=== PATIENT | male | born 1935 | race Caucasian/White ===

== ENCOUNTER → 2017-12-03 | Outpatient (CLI) | payer MEDICARE, BC ==
[~2017-12-03] MED LIST: ALPR1; ATOR10; BUDE.5; BUPR150ER; CALCA400CH; CHOL10002 PO; CIPDEXSU; CLON.1 PO; CLON.3 TOP; FLUT1DIS5; FURO40; Hair, Skin & N1 EACH; IRON PO; LISI5 PO; POTA10T; PRED20 PO; Percocet 5-3251 EACH PO; Prednisone20 MG PO; TIOT18; XARELTO20 MG
[2017-12-03 10:49] LABS: BASOPHILS ABSOLUTE AUTO 0.02 K/mm3 (0.00-0.23); BASOPHILS PERCENT AUTO 0 % (0-2); EOSINOPHILS ABSOLUTE AUTO 0.03 K/mm3 (0.00-0.68); EOSINOPHILS PERCENT AUTO 0 % (0-6); Hematocrit 38.1 % (37.0-53.0); Hemoglobin 11.9 g/dL (13.5-17.5); IMMATURE GRAN ABSOLUTE AUTO 0.07 K/mm3 (0.00-0.10); IMMATURE GRAN PERCENT AUTO 1 % (0-1); LYMPHOCYTES ABSOLUTE AUTO 1.35 K/mm3 (0.84-5.20); LYMPHOCYTES PERCENT AUTO 13 % (21-46); MONOCYTES ABSOLUTE AUTO 0.86 K/mm3 (0.16-1.47); MONOCYTES PERCENT AUTO 8 % (4-13); Mean Corpuscular HGB 32.2 pg (26.0-34.0); Mean Corpuscular HGB Conc 31.2 g/dL (31.5-36.5); Mean Corpuscular Volume 103 fL (80-100); Mean Platelet Volume 10.9 fL (9.1-12.4); NEUTROPHILS ABSOLUTE AUTO 8.29 K/mm3 (1.96-9.15); NEUTROPHILS PERCENT AUTO 78 % (41-73); Platelet Count 59 K/mm3 (150-400); RDW Coefficient Variation 17.1 % (11.7-14.2); RDW Standard Deviation 64.3 fL (35.1-46.3); White Blood Cell Count 10.62 K/mm3 (4.00-11.30)
== END | disposition home or self-care (01) ==
LOC: LAB 09:56
PROVIDERS: Internal Medicine Hematology & Oncology
DX: C83.58 Lymphoblastic (diffuse) lymphoma, lymph nodes of multiple sites (principal); D64.9 Anemia, unspecified
CPT/HCPCS: 85025

== ENCOUNTER 2017-12-25 15:42 | Emergency (ER) | payer MEDICARE, BC ==
[~2017-12-25] VITALS: Ht 175.3 cm; Wt 86.2 kg
[~2017-12-25 15:42] MED LIST changes: -CHOL10002 PO; -CLON.1 PO; -IRON PO; -LISI5 PO; -PRED20 PO; -Percocet 5-3251 EACH PO; -Prednisone20 MG PO
[2017-12-25] MEDS ORDERED: PRED20 PO (16:23)
[2018-06-29] MEDS ORDERED: CLON.1 PO (00:04)
[2018-06-29] MEDS ORDERED: LISI5 PO (00:05)
[2018-06-29] MEDS ORDERED: IRON PO (00:07)
[2018-06-29] MEDS ORDERED: CHOL10002 PO (00:08)
[2018-06-29] MEDS ORDERED: Percocet 5-3251 EACH PO (06:40)
[2018-06-29] MEDS ORDERED: Prednisone20 MG PO (06:40)
== END 2017-12-25 18:11 | disposition home or self-care (01) ==
LOC: ER 15:42
DX: S81.811A Laceration without foreign body, right lower leg, initial encounter (principal); S61.512A Laceration without foreign body of left wrist, initial encounter; I10 Essential (primary) hypertension; F41.9 Anxiety disorder, unspecified; J44.9 Chronic obstructive pulmonary disease, unspecified; Z79.899 Other long term (current) drug therapy; Z87.891 Personal history of nicotine dependence; Z96.641 Presence of right artificial hip joint; W18.30XA Fall on same level, unspecified, initial encounter
CPT/HCPCS: 99283

== ENCOUNTER 2018-01-18 08:34 | Day surgery (SDC) | payer MEDICARE, BC ==
[~2018-01-18 08:34] MED LIST changes: +PRED20 PO
[2018-06-29] MEDS ORDERED: CLON.1 PO (00:04)
[2018-06-29] MEDS ORDERED: LISI5 PO (00:05)
[2018-06-29] MEDS ORDERED: IRON PO (00:07)
[2018-06-29] MEDS ORDERED: CHOL10002 PO (00:08)
[2018-06-29] MEDS ORDERED: Percocet 5-3251 EACH PO (06:40)
[2018-06-29] MEDS ORDERED: Prednisone20 MG PO (06:40)
== END 2018-01-18 23:19 | disposition home or self-care (01) ==
LOC: WOUND 08:34
PROC: 0HBKXZZ Excision of Right Lower Leg Skin, External Approach (ICD-10-PCS; principal; 2018-01-18)
DX: Z48.00 Encounter for change or removal of nonsurgical wound dressing (principal); S81.821S Laceration with foreign body, right lower leg, sequela; J44.9 Chronic obstructive pulmonary disease, unspecified; I10 Essential (primary) hypertension; J45.20 Mild intermittent asthma, uncomplicated
CPT/HCPCS: 93922; G0463

== ENCOUNTER 2018-01-25 00:08 | Day surgery (SDC) | payer MEDICARE, BC ==
[2018-06-29] MEDS ORDERED: CLON.1 PO (00:04)
[2018-06-29] MEDS ORDERED: LISI5 PO (00:05)
[2018-06-29] MEDS ORDERED: IRON PO (00:07)
[2018-06-29] MEDS ORDERED: CHOL10002 PO (00:08)
[2018-06-29] MEDS ORDERED: Prednisone20 MG PO (06:40)
[2018-06-29] MEDS ORDERED: Percocet 5-3251 EACH PO (06:40)
== END 2018-01-25 22:51 | disposition home or self-care (01) ==
LOC: WOUND 00:08
PROC: 0HBKXZZ Excision of Right Lower Leg Skin, External Approach (ICD-10-PCS; principal; 2018-01-25)
PROC: 2W1LX6Z Compression of Right Lower Extremity using Pressure Dressing (ICD-10-PCS; principal; 2018-01-25)
DX: S81.821A Laceration with foreign body, right lower leg, initial encounter (principal); J44.9 Chronic obstructive pulmonary disease, unspecified; I12.9 Hypertensive chronic kidney disease with stage 1 through stage 4 chronic kidney disease, or unspecified chronic kidney disease; I48.91 Unspecified atrial fibrillation; C83.58 Lymphoblastic (diffuse) lymphoma, lymph nodes of multiple sites; J45.20 Mild intermittent asthma, uncomplicated; D64.9 Anemia, unspecified

== ENCOUNTER 2018-01-28 11:25 | Day surgery (SDC) | payer MEDICARE, BC ==
[2018-06-29] MEDS ORDERED: CLON.1 PO (00:04)
[2018-06-29] MEDS ORDERED: LISI5 PO (00:05)
[2018-06-29] MEDS ORDERED: IRON PO (00:07)
[2018-06-29] MEDS ORDERED: CHOL10002 PO (00:08)
[2018-06-29] MEDS ORDERED: Prednisone20 MG PO (06:40)
[2018-06-29] MEDS ORDERED: Percocet 5-3251 EACH PO (06:40)
== END 2018-01-28 22:51 | disposition home or self-care (01) ==
LOC: WOUND 11:25
PROC: 2W1RX6Z Compression of Left Lower Leg using Pressure Dressing (ICD-10-PCS; principal; 2018-01-28)
DX: S81.821A Laceration with foreign body, right lower leg, initial encounter (principal); J44.9 Chronic obstructive pulmonary disease, unspecified; J45.20 Mild intermittent asthma, uncomplicated; I48.91 Unspecified atrial fibrillation; C83.58 Lymphoblastic (diffuse) lymphoma, lymph nodes of multiple sites; I12.9 Hypertensive chronic kidney disease with stage 1 through stage 4 chronic kidney disease, or unspecified chronic kidney disease; N18.9 Chronic kidney disease, unspecified; D64.9 Anemia, unspecified

== ENCOUNTER 2018-02-01 10:57 | Day surgery (SDC) | payer MEDICARE, BC ==
[2018-06-29] MEDS ORDERED: CLON.1 PO (00:04)
[2018-06-29] MEDS ORDERED: LISI5 PO (00:05)
[2018-06-29] MEDS ORDERED: IRON PO (00:07)
[2018-06-29] MEDS ORDERED: CHOL10002 PO (00:08)
[2018-06-29] MEDS ORDERED: Prednisone20 MG PO (06:40)
[2018-06-29] MEDS ORDERED: Percocet 5-3251 EACH PO (06:40)
== END 2018-02-01 22:58 | disposition home or self-care (01) ==
LOC: WOUND 10:57
PROC: 0HBKXZZ Excision of Right Lower Leg Skin, External Approach (ICD-10-PCS; principal; 2018-02-01)
PROC: 2W1LX6Z Compression of Right Lower Extremity using Pressure Dressing (ICD-10-PCS; principal; 2018-02-01)
DX: S81.821A Laceration with foreign body, right lower leg, initial encounter (principal); J44.9 Chronic obstructive pulmonary disease, unspecified; J45.20 Mild intermittent asthma, uncomplicated; I48.91 Unspecified atrial fibrillation; C83.58 Lymphoblastic (diffuse) lymphoma, lymph nodes of multiple sites; I12.9 Hypertensive chronic kidney disease with stage 1 through stage 4 chronic kidney disease, or unspecified chronic kidney disease; N18.9 Chronic kidney disease, unspecified; D64.9 Anemia, unspecified
CPT/HCPCS: G0463

== ENCOUNTER → 2018-02-11 | Outpatient (CLI) | payer MEDICARE, BC ==
[~2018-02-11] MED LIST changes: +CHOL10002 PO; +CLON.1 PO; +IRON PO; +LISI5 PO; +Percocet 5-3251 EACH PO; +Prednisone20 MG PO
== END ==
LOC: LAB 16:47
DX: L08.0 Pyoderma (principal)
CPT/HCPCS: 87070; 87077; 87147; 87186; 87205

== ENCOUNTER 2018-02-15 10:49 | Day surgery (SDC) | payer MEDICARE, BC ==
[~2018-02-15 10:49] MED LIST changes: -CHOL10002 PO; -CLON.1 PO; -IRON PO; -LISI5 PO; -Percocet 5-3251 EACH PO; -Prednisone20 MG PO
[2018-06-29] MEDS ORDERED: CLON.1 PO (00:04)
[2018-06-29] MEDS ORDERED: LISI5 PO (00:05)
[2018-06-29] MEDS ORDERED: IRON PO (00:07)
[2018-06-29] MEDS ORDERED: CHOL10002 PO (00:08)
[2018-06-29] MEDS ORDERED: Percocet 5-3251 EACH PO (06:40)
[2018-06-29] MEDS ORDERED: Prednisone20 MG PO (06:40)
== END 2018-02-15 15:56 | disposition home or self-care (01) ==
LOC: WOUND 10:49
PROC: 0HBKXZZ Excision of Right Lower Leg Skin, External Approach (ICD-10-PCS; principal; 2018-02-15)
DX: Z48.00 Encounter for change or removal of nonsurgical wound dressing (principal); S81.811D Laceration without foreign body, right lower leg, subsequent encounter; L97.811 Non-pressure chronic ulcer of other part of right lower leg limited to breakdown of skin; J44.9 Chronic obstructive pulmonary disease, unspecified; J45.20 Mild intermittent asthma, uncomplicated; C83.58 Lymphoblastic (diffuse) lymphoma, lymph nodes of multiple sites; D64.9 Anemia, unspecified; I12.9 Hypertensive chronic kidney disease with stage 1 through stage 4 chronic kidney disease, or unspecified chronic kidney disease; N18.9 Chronic kidney disease, unspecified; D63.1 Anemia in chronic kidney disease; I48.91 Unspecified atrial fibrillation; Z79.01 Long term (current) use of anticoagulants

== ENCOUNTER 2018-02-18 13:56 | Day surgery (SDC) | payer MEDICARE, BC ==
[2018-06-29] MEDS ORDERED: CLON.1 PO (00:04)
[2018-06-29] MEDS ORDERED: LISI5 PO (00:05)
[2018-06-29] MEDS ORDERED: IRON PO (00:07)
[2018-06-29] MEDS ORDERED: CHOL10002 PO (00:08)
[2018-06-29] MEDS ORDERED: Percocet 5-3251 EACH PO (06:40)
[2018-06-29] MEDS ORDERED: Prednisone20 MG PO (06:40)
== END 2018-02-18 15:00 | disposition home or self-care (01) ==
LOC: WOUND 13:56
PROC: 2W1QX6Z Compression of Right Lower Leg using Pressure Dressing (ICD-10-PCS; principal; 2018-02-18)
DX: Z48.00 Encounter for change or removal of nonsurgical wound dressing (principal); S81.821S Laceration with foreign body, right lower leg, sequela; J44.9 Chronic obstructive pulmonary disease, unspecified; J45.20 Mild intermittent asthma, uncomplicated; C83.58 Lymphoblastic (diffuse) lymphoma, lymph nodes of multiple sites; N18.9 Chronic kidney disease, unspecified; I12.9 Hypertensive chronic kidney disease with stage 1 through stage 4 chronic kidney disease, or unspecified chronic kidney disease; D63.1 Anemia in chronic kidney disease; I48.91 Unspecified atrial fibrillation; D64.9 Anemia, unspecified; Z79.01 Long term (current) use of anticoagulants

== ENCOUNTER 2018-02-21 00:50 | Day surgery (SDC) | payer MEDICARE, BC ==
[~2018-02-21 00:50] MED LIST changes: +CLON.3; -CLON.3 TOP
== END 2018-02-21 22:53 | disposition home or self-care (01) ==
LOC: WOUND 00:50
PROC: 0HBKXZZ Excision of Right Lower Leg Skin, External Approach (ICD-10-PCS; principal; 2018-02-21)
DX: S81.821A Laceration with foreign body, right lower leg, initial encounter (principal); J44.9 Chronic obstructive pulmonary disease, unspecified; J45.20 Mild intermittent asthma, uncomplicated; I12.9 Hypertensive chronic kidney disease with stage 1 through stage 4 chronic kidney disease, or unspecified chronic kidney disease; I48.91 Unspecified atrial fibrillation; C83.58 Lymphoblastic (diffuse) lymphoma, lymph nodes of multiple sites; N18.9 Chronic kidney disease, unspecified; D64.9 Anemia, unspecified
CPT/HCPCS: G0463

== ENCOUNTER 2018-03-01 10:49 | Day surgery (SDC) | payer MEDICARE, BC | END 2018-03-01 12:29 | disposition home or self-care (01) | LOC: WOUND 10:49 | PROC: 2W1QX6Z Compression of Right Lower Leg using Pressure Dressing (ICD-10-PCS; principal; 2018-03-01) | DX: S81.801A Unspecified open wound, right lower leg, initial encounter (principal); J44.9 Chronic obstructive pulmonary disease, unspecified; J45.20 Mild intermittent asthma, uncomplicated; I48.91 Unspecified atrial fibrillation; C83.58 Lymphoblastic (diffuse) lymphoma, lymph nodes of multiple sites; I12.9 Hypertensive chronic kidney disease with stage 1 through stage 4 chronic kidney disease, or unspecified chronic kidney disease; N18.9 Chronic kidney disease, unspecified; D64.9 Anemia, unspecified ==

== ENCOUNTER 2018-03-05 10:40 | Day surgery (SDC) | payer MEDICARE, BC | END 2018-03-05 12:22 | disposition home or self-care (01) | LOC: WOUND 10:40 | PROC: 0HBKXZZ Excision of Right Lower Leg Skin, External Approach (ICD-10-PCS; principal; 2018-03-05) | PROC: 0HBLXZZ Excision of Left Lower Leg Skin, External Approach (ICD-10-PCS; 2018-03-05) | DX: S81.821A Laceration with foreign body, right lower leg, initial encounter (principal); I10 Essential (primary) hypertension; J45.20 Mild intermittent asthma, uncomplicated; I48.91 Unspecified atrial fibrillation; C83.58 Lymphoblastic (diffuse) lymphoma, lymph nodes of multiple sites; D64.9 Anemia, unspecified | CPT/HCPCS: G0463 ==

== ENCOUNTER 2018-03-07 09:15 | Day surgery (SDC) | payer MEDICARE, BC | END 2018-03-07 22:42 | disposition home or self-care (01) | LOC: WOUND 09:15 | PROC: 2W1RX6Z Compression of Left Lower Leg using Pressure Dressing (ICD-10-PCS; principal; 2018-03-07) | DX: S90.512A Abrasion, left ankle, initial encounter (principal); S81.821A Laceration with foreign body, right lower leg, initial encounter; J44.9 Chronic obstructive pulmonary disease, unspecified; I10 Essential (primary) hypertension; J45.20 Mild intermittent asthma, uncomplicated; I48.91 Unspecified atrial fibrillation; C83.58 Lymphoblastic (diffuse) lymphoma, lymph nodes of multiple sites; N18.9 Chronic kidney disease, unspecified; D64.9 Anemia, unspecified ==

== ENCOUNTER 2018-03-14 00:14 | Day surgery (SDC) | payer MEDICARE, BC | END 2018-03-14 22:38 | disposition home or self-care (01) | LOC: WOUND 00:14 | PROC: 0HBKXZZ Excision of Right Lower Leg Skin, External Approach (ICD-10-PCS; principal; 2018-03-14) | DX: S81.821A Laceration with foreign body, right lower leg, initial encounter (principal); J44.9 Chronic obstructive pulmonary disease, unspecified; J45.20 Mild intermittent asthma, uncomplicated; I48.91 Unspecified atrial fibrillation; C83.58 Lymphoblastic (diffuse) lymphoma, lymph nodes of multiple sites; I12.9 Hypertensive chronic kidney disease with stage 1 through stage 4 chronic kidney disease, or unspecified chronic kidney disease; N18.9 Chronic kidney disease, unspecified; D64.9 Anemia, unspecified | CPT/HCPCS: G0463 ==

== ENCOUNTER 2018-03-21 13:27 | Day surgery (SDC) | payer MEDICARE, BC | END 2018-03-21 15:48 | disposition home or self-care (01) | LOC: WOUND 13:27 | PROC: 2W1QX6Z Compression of Right Lower Leg using Pressure Dressing (ICD-10-PCS; principal; 2018-03-21) | DX: S81.821A Laceration with foreign body, right lower leg, initial encounter (principal); J44.9 Chronic obstructive pulmonary disease, unspecified; I11.0 Hypertensive heart disease with heart failure; J45.20 Mild intermittent asthma, uncomplicated; I48.91 Unspecified atrial fibrillation; C83.58 Lymphoblastic (diffuse) lymphoma, lymph nodes of multiple sites; N18.9 Chronic kidney disease, unspecified; D64.9 Anemia, unspecified | CPT/HCPCS: G0463 ==

== ENCOUNTER 2018-03-28 00:08 | Day surgery (SDC) | payer MEDICARE, BC | END 2018-03-28 23:15 | disposition home or self-care (01) | LOC: WOUND 00:08 | PROC: 2W1LX6Z Compression of Right Lower Extremity using Pressure Dressing (ICD-10-PCS; principal; 2018-03-28) | PROC: 0HBKXZZ Excision of Right Lower Leg Skin, External Approach (ICD-10-PCS; principal; 2018-03-28) | PROC: 0HBLXZZ Excision of Left Lower Leg Skin, External Approach (ICD-10-PCS; principal; 2018-03-28) | PROC: 2W1RX6Z Compression of Left Lower Leg using Pressure Dressing (ICD-10-PCS; principal; 2018-03-28) | DX: S81.821A Laceration with foreign body, right lower leg, initial encounter (principal); J44.9 Chronic obstructive pulmonary disease, unspecified; J45.20 Mild intermittent asthma, uncomplicated; I48.91 Unspecified atrial fibrillation; C83.58 Lymphoblastic (diffuse) lymphoma, lymph nodes of multiple sites; I12.9 Hypertensive chronic kidney disease with stage 1 through stage 4 chronic kidney disease, or unspecified chronic kidney disease; N18.9 Chronic kidney disease, unspecified; D64.9 Anemia, unspecified | CPT/HCPCS: G0463 ==

== ENCOUNTER 2018-04-04 00:13 | Day surgery (SDC) | payer MEDICARE, BC | END 2018-04-04 23:00 | disposition home or self-care (01) | LOC: WOUND 00:13 | PROC: 2W1RX6Z Compression of Left Lower Leg using Pressure Dressing (ICD-10-PCS; principal; 2018-04-04) | PROC: 0HBKXZZ Excision of Right Lower Leg Skin, External Approach (ICD-10-PCS; principal; 2018-04-04) | PROC: 2W1QX6Z Compression of Right Lower Leg using Pressure Dressing (ICD-10-PCS; principal; 2018-04-04) | PROC: 0HBLXZZ Excision of Left Lower Leg Skin, External Approach (ICD-10-PCS; principal; 2018-04-04) | DX: S81.821A Laceration with foreign body, right lower leg, initial encounter (principal); S91.002A Unspecified open wound, left ankle, initial encounter; S81.812A Laceration without foreign body, left lower leg, initial encounter; L97.829 Non-pressure chronic ulcer of other part of left lower leg with unspecified severity; J44.9 Chronic obstructive pulmonary disease, unspecified; I10 Essential (primary) hypertension; J45.20 Mild intermittent asthma, uncomplicated; I48.91 Unspecified atrial fibrillation; C83.58 Lymphoblastic (diffuse) lymphoma, lymph nodes of multiple sites; N18.9 Chronic kidney disease, unspecified; D64.9 Anemia, unspecified | CPT/HCPCS: G0463 ==

== ENCOUNTER 2018-04-11 11:00 | Day surgery (SDC) | payer MEDICARE, BC | END 2018-04-11 14:06 | disposition home or self-care (01) | LOC: WOUND 11:00 | PROC: 2W1LX6Z Compression of Right Lower Extremity using Pressure Dressing (ICD-10-PCS; principal; 2018-04-11) | DX: S81.821A Laceration with foreign body, right lower leg, initial encounter (principal); S91.002A Unspecified open wound, left ankle, initial encounter; J44.9 Chronic obstructive pulmonary disease, unspecified; I12.9 Hypertensive chronic kidney disease with stage 1 through stage 4 chronic kidney disease, or unspecified chronic kidney disease; J45.20 Mild intermittent asthma, uncomplicated; I48.91 Unspecified atrial fibrillation; C83.58 Lymphoblastic (diffuse) lymphoma, lymph nodes of multiple sites; N18.9 Chronic kidney disease, unspecified; D64.9 Anemia, unspecified | CPT/HCPCS: G0463 ==

== ENCOUNTER 2018-04-18 13:15 | Day surgery (SDC) | payer MEDICARE, BC | END 2018-04-18 14:31 | disposition home or self-care (01) | LOC: WOUND 13:15 | PROC: 2W1RX6Z Compression of Left Lower Leg using Pressure Dressing (ICD-10-PCS; principal; 2018-04-18) | PROC: 2W1QX6Z Compression of Right Lower Leg using Pressure Dressing (ICD-10-PCS; principal; 2018-04-18) | DX: S91.002A Unspecified open wound, left ankle, initial encounter (principal); S81.821A Laceration with foreign body, right lower leg, initial encounter; J44.9 Chronic obstructive pulmonary disease, unspecified; I12.9 Hypertensive chronic kidney disease with stage 1 through stage 4 chronic kidney disease, or unspecified chronic kidney disease; J45.20 Mild intermittent asthma, uncomplicated; D64.9 Anemia, unspecified ==

== ENCOUNTER 2018-04-25 13:10 | Day surgery (SDC) | payer MEDICARE, BC | END 2018-04-25 14:28 | disposition home or self-care (01) | LOC: WOUND 13:10 | PROC: 2W1RX6Z Compression of Left Lower Leg using Pressure Dressing (ICD-10-PCS; principal; 2018-04-25) | DX: S81.812A Laceration without foreign body, left lower leg, initial encounter (principal); L97.829 Non-pressure chronic ulcer of other part of left lower leg with unspecified severity; S81.811A Laceration without foreign body, right lower leg, initial encounter; I10 Essential (primary) hypertension | CPT/HCPCS: G0463 ==

== ENCOUNTER 2018-05-01 15:00 | Day surgery (SDC) | payer MEDICARE, BC | END 2018-05-01 22:40 | disposition home or self-care (01) | LOC: WOUND 15:00 | DX: Z48.00 Encounter for change or removal of nonsurgical wound dressing (principal); S81.821A Laceration with foreign body, right lower leg, initial encounter; S91.002A Unspecified open wound, left ankle, initial encounter; J44.9 Chronic obstructive pulmonary disease, unspecified; J45.20 Mild intermittent asthma, uncomplicated; I48.91 Unspecified atrial fibrillation; C83.58 Lymphoblastic (diffuse) lymphoma, lymph nodes of multiple sites; I12.9 Hypertensive chronic kidney disease with stage 1 through stage 4 chronic kidney disease, or unspecified chronic kidney disease; N18.9 Chronic kidney disease, unspecified | CPT/HCPCS: G0463 ==

== ENCOUNTER → 2018-07-30 | Outpatient (CLI) | payer MEDICARE, BC ==
[~2018-07-30] MED LIST changes: +CHOL10002 PO; +CLON.1 PO; -CLON.3; +CLON.3 TOP; +IRON PO; +LISI5 PO; +Percocet 5-3251 EACH PO; +Prednisone20 MG PO
== END | disposition home or self-care (01) ==
LOC: LAB SHORT 07:32 → PLD 07:32
DX: D48.5 Neoplasm of uncertain behavior of skin (principal)
CPT/HCPCS: 88305

== ENCOUNTER → 2018-08-14 | Outpatient (CLI) | payer MEDICARE, BC | END | disposition home or self-care (01) | LOC: PLD 08:15 → LAB SHORT 08:15 | DX: C44.42 Squamous cell carcinoma of skin of scalp and neck (principal) | CPT/HCPCS: 88305 ==

== ENCOUNTER → 2018-11-14 | Outpatient (CLI) | payer MEDICARE, BC | END | disposition home or self-care (01) | LOC: LAB 11:20 → LAB SHORT 11:20 | DX: L08.0 Pyoderma (principal) | CPT/HCPCS: 87070; 87077; 87147; 87186; 87205 ==

== ENCOUNTER → 2018-11-27 | Outpatient (CLI) | payer MEDICARE, BC | END | disposition home or self-care (01) | LOC: LAB 10:11 → LAB SHORT 10:11 | DX: L08.0 Pyoderma (principal) | CPT/HCPCS: 87070; 87077; 87147; 87186; 87205 ==

== ENCOUNTER → 2018-12-11 | Outpatient (CLI) | payer MEDICARE, BC | END | disposition home or self-care (01) | LOC: LAB 12:10 → LAB SHORT 12:10 | DX: L08.0 Pyoderma (principal) | CPT/HCPCS: 87070; 87077; 87147; 87186; 87205 ==

== ENCOUNTER → 2019-01-01 | Outpatient (CLI) | payer MEDICARE, BC | END | disposition home or self-care (01) | LOC: LAB 11:19 → LAB SHORT 11:19 | DX: L08.0 Pyoderma (principal) | CPT/HCPCS: 87070; 87077; 87147; 87186; 87205 ==

== ENCOUNTER → 2019-01-29 | Outpatient (CLI) | payer MEDICARE, BC | END | disposition home or self-care (01) | LOC: LAB 11:42 → LAB SHORT 11:42 | DX: L08.0 Pyoderma (principal) | CPT/HCPCS: 87070; 87205 ==

== ENCOUNTER → 2019-03-18 | Outpatient (CLI) | payer MEDICARE, BC | END | disposition home or self-care (01) | LOC: LAB SHORT 15:22 → PLD 15:22 | DX: C44.42 Squamous cell carcinoma of skin of scalp and neck (principal) | CPT/HCPCS: 88305 ==

== ENCOUNTER → 2019-06-17 | Outpatient (CLI) | payer MEDICARE, BC ==
[~2019-06-17] MED LIST changes: +ACET325 PO; -ALPR1; +ALPR1 PO; +AMOCLA875 PO; -ATOR10; +ATOR10 PO; +Augmentin 875-1 EACH PO; -BUPR150ER; +BUPR150ER PO; +Budesonide0.5 MG/2 M INH; +CALCIUM 600 +1 EA11 PO; +CIPDEXSU BOTHEARS; +CYAN500 PO; +DILT60ER PO; +FLUT1DIS5 INH; -FURO40; +FURO40 PO; +Ferrous Sulfat325 M2 PO; +Florastor250 MG PO; -Hair, Skin & N1 EACH; -IRON PO; +OMEP20ER PO; +ONDA4ODT; -POTA10T; +POTA10T PO; +Prednisone5 MG PO; +THERA1 EACH PO; +TIMO.5OPSO RIGHTEYE; -TIOT18; +TIOT18 INH; -XARELTO20 MG; +XARELTO20 MG PO
== END | disposition home or self-care (01) ==
LOC: PLD 11:36 → LAB SHORT 11:36
DX: D48.5 Neoplasm of uncertain behavior of skin (principal)
CPT/HCPCS: 88305

== ENCOUNTER 2019-07-11 11:00 | Inpatient (IN) | payer MEDICARE, BC ==
[~2019-07-11] VITALS: Ht 177.8 cm; Wt 89.2 kg
[~2019-07-11 11:00] MED LIST changes: -ACET325 PO; -AMOCLA875 PO; -Augmentin 875-1 EACH PO; -Budesonide0.5 MG/2 M INH; -CALCIUM 600 +1 EA11 PO; -CIPDEXSU BOTHEARS; -CYAN500 PO; -DILT60ER PO; -FLUT1DIS5 INH; -Florastor250 MG PO; -OMEP20ER PO; -ONDA4ODT; -Prednisone5 MG PO; -TIMO.5OPSO RIGHTEYE
[2019-07-11 11:40] LABS: Chloride (POC) 104 mmol/L (98-108); Creatinine (POC) 1.8 mg/dL (0.8-1.3); Glucose (ISTAT POC) 76 mg/dL (70-99); Hemoglobin (POC) 15.3 g/dL (13.5-17.5); Potassium (POC) 3.5 mmol/L (3.5-5.5); Sodium (POC) 143 mmol/L (135-148); Total CO2 (POC) 28 mmol/L (21-32)
[2019-07-11 11:48] LABS: Source, Urine Clean Catch
[2019-07-11 11:50] LABS: Appearance, Urine Clear (Clear); Bilirubin, Urine Neg (Neg); Blood, Urine 2+ (Neg); Color, Urine Yellow (P-Yellow); Glucose Qualitative, Urine Neg (Neg); Ketones, Urine 1+ (Neg); Leukocyte Esterase, Urine Neg (Neg); Nitrite, Urine Neg (Neg); Protein, Urine 2+ (Neg); Urobilinogen, Urine NORM (Normal)
[2019-07-11 11:51] LABS: Hematocrit 48.3 % (37.0-53.0); Hemoglobin 15.2 g/dL (13.5-17.5); Mean Corpuscular HGB 31.5 pg (26.0-34.0); Mean Corpuscular HGB Conc 31.5 g/dL (31.5-36.5); Mean Corpuscular Volume 100 fL (80-100); Mean Platelet Volume 11.6 fL (9.1-12.4); Platelet Count 141 K/mm3 (150-400); RDW Coefficient Variation 16.1 % (11.7-14.2); RDW Standard Deviation 59.7 fL (35.1-46.3); Red Blood Cell Count 4.83 M/mm3 (4.30-5.90); White Blood Cell Count 5.68 K/mm3 (4.00-11.30)
[2019-07-11 12:16] LABS: Bacteria Few /hpf; Squamous Epithelial Cells Few /hpf (Few); White Blood Cells, Urine 0-2 /hpf (0-5)
[2019-07-11 12:37] LABS: BAND PERCENT MAN 10 % (0-8); BASOPHILS PERCENT MAN 0 % (0-2); EOSINOPHILS PERCENT MAN 0 % (0-6); LYMPHOCYTES % ATYPICAL MANUAL 1 % (0-0); LYMPHOCYTES ABSOLUTE MAN 0.34 K/mm3 (0.84-5.20); LYMPHOCYTES PERCENT MAN 5 % (21-46); MONOCYTES ABSOLUTE MAN 0.11 K/mm3 (0.16-1.47); MONOCYTES PERCENT MAN 2 % (4-13); NEUTROPHILS ABSOLUTE MAN 5.22 K/mm3 (1.96-9.15); SEG NEUTROPHILS PERCENT MAN 82 % (41-73); TOTAL CELLS COUNTED 100
[2019-07-11 12:52] LABS: Troponin I 0.041 ng/mL (0.000-0.040)
[2019-07-11 12:56] LABS: Albumin, Blood 3.2 g/dL (3.4-5.0); Bilirubin, Total 0.7 mg/dL (0.1-1.0); Bun/Creatinine Ratio 27.5 (12.0-20.0); Calcium, Blood 9.3 mg/dL (8.5-10.1); Creatinine, Blood 1.49 mg/dL (0.60-1.20); Globulin, Blood 3.3 g/dL (2.2-4.0); Potassium, Blood 3.7 mmol/L (3.5-5.5); Total Protein, Blood 6.5 g/dL (6.4-8.2)
[2019-07-11] MEDS ORDERED: Budesonide0.5 MG/2 M INH (14:18)
[2019-07-11] MEDS ORDERED: CALCIUM 600 +1 EA11 PO (14:19)
[2019-07-11] MEDS ORDERED: Prednisone5 MG PO (14:23)
[2019-07-11] MEDS ORDERED: TIMO.5OPSO RIGHTEYE (14:25)
[2019-07-11] MEDS ORDERED: FLUT1DIS5 INH (14:26)
[2019-07-11] MEDS ORDERED: CYAN500 PO (14:26)
[2019-07-11] MEDS ORDERED: CIPDEXSU BOTHEARS (14:26)
[2019-07-11] MEDS ORDERED: OMEP20ER PO (14:27)
--- NOTE | 2019-07-11 15:30 | NUR ---
PT ARRIVED TO PCU VIA GURNEY FROM ED. REPORT OBTAINED. CARDIZEM GTT WAS HELD DUE TO B/P BEING LOW, BUT IS OK ON ARRIVAL, HE IS VERY LETHARGIC, HE WILL WAKE BUT IMMED RETURNS TO SLEEP, IN ATTENDENCE. HE IS NOT ABLE TO SWALLOW PO MEDS SAFELY AT THIS TIME. LUNGS ARE CLEAR DIM IN BASES, RESP EVEN AND UNLABORED, CURRENTLY ON 2 LITERS 02 VIA N/C, NO COUGH NOTED, HRIRR, TELE IN PLACE RUNNING AFIB IN THE 90-110'S, 2+ EDEMA NOTED TO LEFT FOOT, PITTING, CAP REFILL <3SEC, VS WNL AT THIS TIME, IV SITE WAS OUT WHEN HE GOT TO ROOM, NEW IV PLACED TO RFA X1 ATTEMPT GOOD BLOOD RETURN, BTX4, ABD FLAT SOFT NONTENDER, VOIDS WITHOUT DIFF, SKIN DARK TO B/L LE, VERY FRAIL SKIN WITH SCATTERED BRUISES. HE IS SHIVERING HE IS SO COLD, WARM BLANKETS APPLIED, ORIENTED TO ROOM LAYOUT AND CALL SYSTEM. CALL LIGHT IN REACH.
--- NOTE | 2019-07-11 16:30 | NUR ---
PT B/P FOUND TO BE IN THE 80'S, CALL TO DR. DIAZ, SHE ORDERED A 500MLS BOLUS, THIS IS INFUSING.
--- NOTE | 2019-07-11 18:23 | NUR ---
PT B/P IN THE 80'S, CALL TO DR. DIAZ FOR THE 2ND TIME AND RECIEVED ORDER FOR ANOTHER 500ML BOLUS. THIS IS INFUSING. AT BEDSIDE. CALL LIGHT IN REACH.
--- NOTE | 2019-07-11 19:22 | NUR ---
DR. DIAZ SAID TO BOLUS ANOTHER 500MLS AFTER THE FIRST TWO IF B/P ISN'T UP, THIS WAS STARTED B/P LO9W 80'S AGAIN.
--- NOTE | 2019-07-11 19:34 | NUR ---
CARE ASSUMPTION / CALL TO MD DIAZ TO NOTIFY OF BP 82/50 AND TROPONIN THAT IS TRENDING UP. ORDERS TO PLACE CARDIOLOGY CONSULT, INFUSE ADDITIONAL 500 ML BOLUS AND TRANSFER TO ICU IF SYS BP < 90 AFTER BOLUS. PT A&O X4, DROWSY AND WEAK. AT BEDSIDE. WILL CONTINUE TO MONITOR AND PROVIDE CARE.
--- NOTE | 2019-07-11 20:29 | NUR ---
TRANSFER TO ICU SYS BP < 90 AFTER 500 ML BOLUS COMPLETE. ORDERS PUT IN FOR ICU STATUS PER MD DIAZ. REPORT GIVEN TO ICU NURSE. PT BEING TRANSFERED BY BED TO ICU [id number].
--- NOTE | 2019-07-11 21:30 | NUR ---
ASSUMED CARE PT TRANFERED FROM PCU TO ICU 8 VIA BED. PT IS LETHARGIC AND RESTING QUIETLY UPON ARIVAL. PT OPENS EYES TO VERBAL STIMULI AND IS ORIENTED AND ABLE TO FOLLOW COMMANDS, THEN PT QUICKLY DRIFTS BACK TO SLEEP. PT DENIES PAIN OR DISCOMFORT. PT ON 2L O2 NC. HR AFIB RATE 110-130'S, AND HYPOTENSIVE WITH SBP 70-90'S. LS CLEAR AT THIS TIME. NS INFUSING AT 100 ML/HR. PT WITH SCATTERED BRUISING TO BUE AND BLE'S. PT SPOUSE AT BEDSIDE. WILL CONTINUE TO MONITOR.
--- NOTE | 2019-07-11 23:06 | NUR ---
JORDY HERNANDEZ NOTIFIED OF CURRENT PT CONDITION AND CONTINUED HYPOTENSION. ORDERS RECIEVED. SEE ORDER HX.
[2019-07-12 04:36] LABS: Hematocrit 39.2 % (37.0-53.0); Hemoglobin 12.2 g/dL (13.5-17.5); Mean Corpuscular HGB 31.6 pg (26.0-34.0); Mean Corpuscular HGB Conc 31.1 g/dL (31.5-36.5); Mean Corpuscular Volume 102 fL (80-100); Mean Platelet Volume 10.4 fL (9.1-12.4); NRBC ABSOLUTE 0.02 K/mm3 (0.00-0.02); NRBC Auto 0.2 /100 WBC (0.0-0.2); Platelet Count 132 K/mm3 (150-400); RDW Coefficient Variation 16.4 % (11.7-14.2); Red Blood Cell Count 3.86 M/mm3 (4.30-5.90); White Blood Cell Count 11.68 K/mm3 (4.00-11.30)
[2019-07-12 04:52] LABS: Bun/Creatinine Ratio 19.4 (12.0-20.0); Calcium, Blood 7.4 mg/dL (8.5-10.1); Creatinine, Blood 2.01 mg/dL (0.60-1.20); Magnesium, Blood 1.9 mg/dL (1.6-2.4); Potassium, Blood 4.4 mmol/L (3.5-5.5)
--- NOTE | 2019-07-12 05:34 | NUR ---
SHIFT SUMMARY PT IMPROVED THIS AM. PT IS MUCH MORE ALERT AND QUICK TO OPEN EYES TO VERBAL STIMULI. PT SNACKED ON SOME CRACKERS THIS AM AND TOLERATING PO FLUIDS. VITAL SIGNS HAVE IMPROVED THIS AM WITH SBP MAINTAINING 100-110'S. PT ON ROOM AIR. NS INFUSING AT 100 ML/HR THROUGH POWER GLIDE TO TANNA. PT USING URINAL TO VOID WELL. SPOUSE HAS REMAINED AT BEDSIDE THROUGHOUT THE NIGHT. WILL CONTINUE TO MONITOR AND REPORT OFF TO ONCOMING RN.
[2019-07-12 05:39] LABS: BAND PERCENT MAN 20 % (0-8); BASOPHILS PERCENT MAN 0 % (0-2); EOSINOPHILS PERCENT MAN 0 % (0-6); LYMPHOCYTES ABSOLUTE MAN 0.23 K/mm3 (0.84-5.20); LYMPHOCYTES PERCENT MAN 2 % (21-46); METAMYELOCYTE ABSOLUTE MAN 0.11 K/mm3 (0.00-0.00); METAMYELOCYTE PERCENT MAN 1 % (0-0); MONOCYTES ABSOLUTE MAN 0.58 K/mm3 (0.16-1.47); MONOCYTES PERCENT MAN 5 % (4-13); MYELOCYTE ABSOLUTE MAN 0.23 K/mm3 (0.00-0.00); MYELOCYTE PERCENT MAN 2 % (0-0); NEUTROPHILS ABSOLUTE MAN 10.51 K/mm3 (1.96-9.15); SEG NEUTROPHILS PERCENT MAN 70 % (41-73); TOTAL CELLS COUNTED 100
--- NOTE | 2019-07-12 09:42 | NUR ---
DR. HARVEY DIS AT THE BEDSIDE AND PT'S HR IS IN THE 120-130 RANGE. ORDER RECEIVED FOR 5MG DILTIAZEM BOLUS AND TO START DILTIAZEM GTT. BOLUS GIVEN AND HR DOWN TO 110S, SBP IN THE 120S. DILTIAZEM GTT STARTED AT 5MG/HR AND HR IN THE 90-LOW 100S, BP 139/95. CONTINUE TO MONITOR. DR. XIAOTRATE GOING IN ROOM FOR ROUNDS NOW.
--- NOTE | 2019-07-12 10:29 | NUR ---
PT TO CT
--- NOTE | 2019-07-12 11:52 | NUR ---
PT TRANSFERRED TO PCU VIA WC WITH RN. REPORT GIVEN TO SEBASTIEN HERNANDEZ. PT'S WITH HIM AT TIME OF TRANSFER. ALL BELONGINGS TRANSPORTED WITH HIM.
--- NOTE | 2019-07-12 12:23 | NUR ---
TRANSFER NOTE PT REPORT RECEIVED FROM JOAN CROWE. PT ARRIVED VIA W/C ACCOMPANIED BY RN AND . PT ALERT AND ORIENTED. VSS. CARDIZEM GTT INFUSING AT 5MG/HR. BP STABLE HR 80'S. PT EXPRESSED THAT HE IS FEELING MUCH BETTER. AGREES. CONTINUE POT.
--- NOTE | 2019-07-12 15:58 | NUR ---
NOTE PT SITTING UP DRINKIGN A CUP OF HOT CHOCHLATE. NO COMPLAINTS AT THIS TIME. BP ELEVATED. PT DOES TAKE A HIGHER DOSE OF CLONIDINE AT HOME THAN RECEIVED EARLIER. CARDIZEM GTT INFUSING AT 5 MG/HR. HR 80-110 BPM. ORDERS FOR VANCOMYCIN AND ZOSYN ALONG WITH SEPSIS FLUID BOLUS RECEIVED. VANCOMYCIN IS COMPATIBLE WITH CARDIZEM BUT ZOSYN IS NOT COMPATIBLE WITH VANCO OR CARDIZEM. SLOW INFUSION ZOSYN IS INFUSING WITH SALINE FOR SEPSIS BOLUS CONCOMITTANT. THE PUMP HAS A RATE CEILING OF 450ML/HR. INFUSING THE BLOUS AND ZOSYN THROUGH HIS POWER GLIDE. CARDIZEM IS INFUSING IN HIS HAND. PT EXPRESSED FEELING MUCH BETTER. CONTINUE POT.
[2019-07-12 17:13] LABS: Source, Urine Clean Catch
[2019-07-12 17:16] LABS: Bilirubin, Urine Neg (Neg); Blood, Urine 2+ (Neg); Glucose Qualitative, Urine Neg (Neg); Ketones, Urine Neg (Neg); Leukocyte Esterase, Urine Neg (Neg); Nitrite, Urine Neg (Neg); Protein, Urine 2+ (Neg); Specific Gravity, Urine 1.015 (1.003-1.022); Urobilinogen, Urine NORM (Normal)
[2019-07-12 17:28] LABS: Appearance, Urine Clear (Clear); Color, Urine Yellow (P-Yellow)
[2019-07-12 17:29] LABS: Bacteria Few /hpf; Red Blood Cells, Urine 0-2 /hpf (0-2); Squamous Epithelial Cells Not Seen /hpf (Few); White Blood Cells, Urine 0-2 /hpf (0-5)
--- NOTE | 2019-07-13 04:21 | NUR ---
SHIFT SUMMARY: PATIENT REMAINS STABLE THIS SHIFT, VSS, CALL LIGHT WITHIN REACH, BED LOW AND LOCKED WITH EXIT ALARM ON.
[2019-07-13 05:43] LABS: Hematocrit 34.3 % (37.0-53.0); Hemoglobin 10.7 g/dL (13.5-17.5); Mean Corpuscular HGB 31.2 pg (26.0-34.0); Mean Corpuscular HGB Conc 31.2 g/dL (31.5-36.5); Mean Corpuscular Volume 100 fL (80-100); Mean Platelet Volume 10.9 fL (9.1-12.4); NRBC ABSOLUTE 0.02 K/mm3 (0.00-0.02); NRBC Auto 0.2 /100 WBC (0.0-0.2); Platelet Count 104 K/mm3 (150-400); RDW Coefficient Variation 16.7 % (11.7-14.2); RDW Standard Deviation 61.8 fL (35.1-46.3); Red Blood Cell Count 3.43 M/mm3 (4.30-5.90); White Blood Cell Count 12.92 K/mm3 (4.00-11.30)
[2019-07-13 06:03] LABS: BAND PERCENT MAN 5 % (0-8); BASOPHILS PERCENT MAN 0 % (0-2); EOSINOPHILS PERCENT MAN 0 % (0-6); LYMPHOCYTES PERCENT MAN 7 % (21-46); MONOCYTES ABSOLUTE MAN 0.77 K/mm3 (0.16-1.47); MONOCYTES PERCENT MAN 6 % (4-13); NEUTROPHILS ABSOLUTE MAN 11.24 K/mm3 (1.96-9.15); SEG NEUTROPHILS PERCENT MAN 82 % (41-73); TOTAL CELLS COUNTED 100
[2019-07-13 06:11] LABS: Magnesium, Blood 2.1 mg/dL (1.6-2.4)
[2019-07-13 06:16] LABS: Alanine Aminotransfer (ALT/SGP 24 U/L (12-78); Albumin, Blood 2.3 g/dL (3.4-5.0); Albumin/Globulin Ratio 0.7 (0.8-1.8); Alk Phos 53 U/L (50-136); Anion Gap 6 mmol/L (6-16); Aspartate Aminotrans (AST/SGOT 27 U/L (12-37); Bilirubin, Total 0.3 mg/dL (0.1-1.0); Blood Urea Nitrogen 34 mg/dL (8-24); Bun/Creatinine Ratio 23.1 (12.0-20.0); CO2, Blood 24 mmol/L (21-32); Calcium, Blood 7.5 mg/dL (8.5-10.1); Chloride, Blood 117 mmol/L (98-108); Creatinine, Blood 1.47 mg/dL (0.60-1.20); Globulin, Blood 3.1 g/dL (2.2-4.0); Glomerular Filtration Rate 49 (60-); Glucose, Blood 109 mg/dL (70-99); Sodium, Blood 147 mmol/L (136-145); Total Protein, Blood 5.4 g/dL (6.4-8.2); Vancomycin, Random 13.2 ug/mL
--- NOTE | 2019-07-13 13:40 | NUR ---
NOTE PT RESTING QUIETLY. AFIB. RATE 80-1105BPM. CARDIZEM GTT 5MG/HR. BP STABLE. AT BEDSIDE. PT RIGHT UE POWERGLIDE HAS NOT LEAKED SINCE BEING REDRESSED YESTERDAY EVENING. PT UP SBA IN ROOM. GAIT STEADY. HE IS COMPLAINING OF HIS RIGHT LEG/HIP HURTING BUT IS REFUSING PAIN MEDICATION. HAVE OFFERED TWICE TODAY. HE PREFERRS TO JUST ELEVATE AND REST. EATING WELL. DEPENDENT EDEMA NOTED ON BOTHE ELBOWS THIS MORNING. DR TORIBIO ORDERED LASIX IV. GIVEN. NOT A LARGE RESPONCE YET. CONTINUE POT.
--- NOTE | 2019-07-13 20:00 | NUR ---
CARDIZEM ON STANDBY PT HR HAS REMAINED IN 80s FOR MAJORITY OF THE DAY. CARDIZEM DRIP PLACED ON STANDBY AT THIS TIME. WILL CONTINUE TO MONITOR CLOSELY.
[2019-07-14 05:27] LABS: Hematocrit 37.2 % (37.0-53.0); Hemoglobin 11.5 g/dL (13.5-17.5); Mean Corpuscular HGB 30.9 pg (26.0-34.0); Mean Corpuscular HGB Conc 30.9 g/dL (31.5-36.5); Mean Corpuscular Volume 100 fL (80-100); Mean Platelet Volume 11.2 fL (9.1-12.4); NRBC ABSOLUTE 0.03 K/mm3 (0.00-0.02); NRBC Auto 0.3 /100 WBC (0.0-0.2); Platelet Count 114 K/mm3 (150-400); RDW Coefficient Variation 17.2 % (11.7-14.2); RDW Standard Deviation 63.2 fL (35.1-46.3); Red Blood Cell Count 3.72 M/mm3 (4.30-5.90); White Blood Cell Count 11.41 K/mm3 (4.00-11.30)
[2019-07-14 05:43] LABS: Magnesium, Blood 2.4 mg/dL (1.6-2.4)
[2019-07-14 05:44] LABS: Albumin, Blood 2.5 g/dL (3.4-5.0); Albumin/Globulin Ratio 0.7 (0.8-1.8); Bilirubin, Total 0.3 mg/dL (0.1-1.0); Bun/Creatinine Ratio 21.8 (12.0-20.0); Calcium, Blood 8.2 mg/dL (8.5-10.1); Creatinine, Blood 1.47 mg/dL (0.60-1.20); Globulin, Blood 3.4 g/dL (2.2-4.0); Potassium, Blood 4.5 mmol/L (3.5-5.5); Total Protein, Blood 5.9 g/dL (6.4-8.2)
[2019-07-14 05:49] LABS: BAND PERCENT MAN 3 % (0-8); BASOPHILS PERCENT MAN 0 % (0-2); EOSINOPHILS PERCENT MAN 0 % (0-6); LYMPHOCYTES ABSOLUTE MAN 1.25 K/mm3 (0.84-5.20); LYMPHOCYTES PERCENT MAN 11 % (21-46); MONOCYTES ABSOLUTE MAN 0.45 K/mm3 (0.16-1.47); MONOCYTES PERCENT MAN 4 % (4-13); NEUTROPHILS ABSOLUTE MAN 9.69 K/mm3 (1.96-9.15); SEG NEUTROPHILS PERCENT MAN 82 % (41-73); TOTAL CELLS COUNTED 100
--- NOTE | 2019-07-14 06:10 | NUR ---
SHIFT SUMMARY PT HAS REMAINED AOX4 THROUGHOUT SHIFT. VSS. PLEASANT AND COOPERATIVE WITH CARE. PT HAS REMAINED ON BEDREST THROUGHOUT THE NIGHT, USING URINAL IN BED INDEPENDENTLY. CARDIAC RHYTHM HAS REMAINED IN ATRIAL FIBRILLATION WITH A RATE IN THE 70-80s; CARDIZEM DRIP REMAINS ON STANDBY AT THIS TIME. PT TURNED SELF IN BED OCCASIONALLY, DENIES NEED FOR ASSISTANCE WITH TURNING Q2, BUT REQUIRES REMINDING OR MOTIVATION TO SHIFT SELF IN BED. O2 SATS HAVE REMAINED >90% ON RA. PT DENIES PAIN THROUGHOUT THE NIGHT, STATING THAT "THE PAIN PILL THAT THE DAY SHIFT NURSE GAVE HIM REALLY HELPED HIS LEG PAIN"- DENIED NEED FOR FURTHER MEDICATION USE AT THIS TIME. NO OTHER CHANGES NOTED FROM INITIAL ASSESSMENT. WILL CONTINUE TO MONITOR AND REPORT TO ONCOMING SHIFT RN. BED IN LOW POSITION, CALL LIGHT IN REACH.
--- NOTE | 2019-07-14 15:59 | NUR ---
update Dr weiner requested an afternoon update. Walked pt around unit with fww at a brisk pace. Pt max hr was [address] Weiner. Orders for d/c home. continue pot.
[2019-07-14] MEDS ORDERED: ACET325 PO (17:14)
[2019-07-14] MEDS ORDERED: ONDA4ODT (17:15)
[2019-07-14] MEDS ORDERED: DILT60ER PO (17:15)
[2019-07-14] MEDS ORDERED: AMOCLA875 PO (17:16)
[2019-07-14] MEDS ORDERED: Florastor250 MG PO (17:17)
--- NOTE | 2019-07-14 18:26 | NUR ---
DISCHARGE HOME PT DISCHARGED HOME VIA W/C. ACCOMPANIED BY RN AND . [facility]. JONATHANR GLIDE REMOVED. PRESSURE DRESSING APLIED TO SITE. PT ASKED TO LEAVE PRESSURE DRESSING ON FOR A COUPLE HOURS D/T HIS USE OF XARELTO. CONTINUE POT.
== END 2019-07-14 18:15 | disposition home or self-care (01) | DRG 871 ==
LOC: ER 11:00 → ICUE 11:01 → PCU 11:01 → ICUE 20:44 → PCU 07-12 11:45
PROVIDERS: Emergency Medicine; Family Medicine; ADMIT Internal Medicine
DX: A40.3 Sepsis due to Streptococcus pneumoniae (principal); I21.A1 Myocardial infarction type 2; G72.0 Drug-induced myopathy; K22.10 Ulcer of esophagus without bleeding; I45.2 Bifascicular block; M31.6 Other giant cell arteritis; Z96.641 Presence of right artificial hip joint; Z87.891 Personal history of nicotine dependence; I48.2 Chronic atrial fibrillation; J44.9 Chronic obstructive pulmonary disease, unspecified; N18.3 Chronic kidney disease, stage 3 (moderate); I08.1 Rheumatic disorders of both mitral and tricuspid valves; I37.1 Nonrheumatic pulmonary valve insufficiency; Z79.01 Long term (current) use of anticoagulants; I95.9 Hypotension, unspecified; Z79.52 Long term (current) use of systemic steroids; I12.9 Hypertensive chronic kidney disease with stage 1 through stage 4 chronic kidney disease, or unspecified chronic kidney disease
CPT/HCPCS: 36415; 71046; 74176; 80047; 80048; 80053; 80202; 81001; 83605; 83735; 83880; 84484; 85014; 85025; 87040; 87077; 87186; 93005; 93010; 93306; 94640; 94760; 96361; 96365; 96366; 96367; 96374; 96375; 96376; 97162; 97165; 97530; 99285-25; A9270; C1751; G0378; J1720; J1940; J2543; J3370; J7030; J7050; J7512

== ENCOUNTER 2019-08-23 11:12 | Emergency (ER) | payer MEDICARE, BC ==
[~2019-08-23] VITALS: Ht 172.7 cm; Wt 81.7 kg
[~2019-08-23 11:12] MED LIST changes: +ACET325 PO; +AMOCLA875 PO; +Budesonide0.5 MG/2 M INH; +CALCIUM 600 +1 EA11 PO; +CIPDEXSU BOTHEARS; +CYAN500 PO; +DILT60ER PO; +FLUT1DIS5 INH; +Florastor250 MG PO; +OMEP20ER PO; +ONDA4ODT; +Prednisone5 MG PO; +TIMO.5OPSO RIGHTEYE
[2019-08-23 11:56] LABS: BASOPHILS ABSOLUTE AUTO 0.03 K/mm3 (0.00-0.23); BASOPHILS PERCENT AUTO 0 % (0-2); EOSINOPHILS PERCENT AUTO 0 % (0-6); IMMATURE GRAN ABSOLUTE AUTO 0.21 K/mm3 (0.00-0.10); IMMATURE GRAN PERCENT AUTO 2 % (0-1); LYMPHOCYTES ABSOLUTE AUTO 1.29 K/mm3 (0.84-5.20); LYMPHOCYTES PERCENT AUTO 12 % (21-46); MONOCYTES ABSOLUTE AUTO 0.85 K/mm3 (0.16-1.47); MONOCYTES PERCENT AUTO 8 % (4-13); Mean Corpuscular HGB 30.7 pg (26.0-34.0); Mean Corpuscular HGB Conc 30.2 g/dL (31.5-36.5); Mean Platelet Volume 10.2 fL (9.1-12.4); NEUTROPHILS ABSOLUTE AUTO 8.46 K/mm3 (1.96-9.15); NEUTROPHILS PERCENT AUTO 78 % (41-73); Platelet Count 216 K/mm3 (150-400); RDW Coefficient Variation 15.8 % (11.7-14.2); Red Blood Cell Count 4.24 M/mm3 (4.30-5.90); White Blood Cell Count 10.84 K/mm3 (4.00-11.30)
[2019-08-23 12:02] LABS: Mean Corpuscular Volume 101 fL (80-100)
[2019-08-23 12:23] LABS: Alanine Aminotransfer (ALT/SGP 20 U/L (12-78); Albumin, Blood 3.4 g/dL (3.4-5.0); Alk Phos 73 U/L (50-136); Anion Gap 7 mmol/L (6-16); Aspartate Aminotrans (AST/SGOT 20 U/L (12-37); Bilirubin, Total 0.4 mg/dL (0.1-1.0); Blood Urea Nitrogen 32 mg/dL (8-24); Bun/Creatinine Ratio 19.4 (12.0-20.0); CO2, Blood 29 mmol/L (21-32); Calcium, Blood 9.5 mg/dL (8.5-10.1); Chloride, Blood 106 mmol/L (98-108); Creatinine, Blood 1.65 mg/dL (0.60-1.20); Globulin, Blood 3.5 g/dL (2.2-4.0); Glomerular Filtration Rate 43 (60-); Glucose, Blood 95 mg/dL (70-99); Potassium, Blood 3.9 mmol/L (3.5-5.5); Sodium, Blood 142 mmol/L (136-145); Total Protein, Blood 6.9 g/dL (6.4-8.2); Troponin I <0.015 ng/mL (0.000-0.040)
[2019-08-23] MEDS ORDERED: Augmentin 875-1 EACH PO (13:24)
== END 2019-08-23 13:47 | disposition home or self-care (01) ==
LOC: ER 11:12
PROVIDERS: Emergency Medicine
DX: J18.9 Pneumonia, unspecified organism (principal); Z87.891 Personal history of nicotine dependence; Z88.6 Allergy status to analgesic agent; Z79.899 Other long term (current) drug therapy; Z79.52 Long term (current) use of systemic steroids
CPT/HCPCS: 36415; 71046; 80053; 84484; 85025; 93005; 93010; 99284-25

== ENCOUNTER 2020-03-17 11:16 | Inpatient (IN) | payer MEDICARE, BC ==
[~2020-03-17] VITALS: Ht 172.7 cm; Wt 83.9 kg
[~2020-03-17 11:16] MED LIST changes: -ALPR1 PO; -AMOCLA875 PO; -ATOR10 PO; +Augmentin 875-1 EACH PO; -BUPR150ER PO; -Budesonide0.5 MG/2 M INH; -CLON.1 PO; -CLON.3 TOP; -DILT60ER PO; -FLUT1DIS5 INH; -FURO40 PO; -LISI5 PO; -OMEP20ER PO; -Prednisone5 MG PO; -TIMO.5OPSO RIGHTEYE; -TIOT18 INH; -XARELTO20 MG PO
[2020-03-17 12:23] LABS: Source, Urine Clean Catch
[2020-03-17 12:32] LABS: Bilirubin, Urine Neg (Neg); Blood, Urine Neg (Neg); Glucose Qualitative, Urine Neg (Neg); Ketones, Urine Neg (Neg); Leukocyte Esterase, Urine Neg (Neg); Nitrite, Urine Neg (Neg); Protein, Urine 1+ (Neg); Specific Gravity, Urine 1.015 (1.003-1.022); Urobilinogen, Urine NORM (Normal)
[2020-03-17] MEDS ORDERED: ATOR10 PO (12:33)
[2020-03-17] MEDS ORDERED: XARELTO20 MG PO (12:33)
[2020-03-17] MEDS ORDERED: PRED1 PO (12:33)
[2020-03-17 12:34] LABS: Appearance, Urine Clear (Clear); Color, Urine Yellow (P-Yellow)
[2020-03-17] MEDS ORDERED: TIMO.5OPSO RIGHTEYE (12:34)
[2020-03-17] MEDS ORDERED: TIOT18 INH (12:34)
[2020-03-17 12:37] LABS: Albumin, Blood 3.6 g/dL (3.4-5.0); Albumin/Globulin Ratio 1.1 (0.8-1.8); Bun/Creatinine Ratio 18.1 (12.0-20.0); Calcium, Blood 9.5 mg/dL (8.5-10.1); Creatinine, Blood 1.38 mg/dL (0.60-1.20); Globulin, Blood 3.4 g/dL (2.2-4.0); Potassium, Blood 4.5 mmol/L (3.5-5.5)
[2020-03-17] MEDS ORDERED: FLUC150A PO (12:42)
[2020-03-17] MEDS ORDERED: LISI5 PO (12:43)
[2020-03-17] MEDS ORDERED: FURO40 PO (12:43)
[2020-03-17] MEDS ORDERED: BUPROPION XL150 M1 PO (12:43)
[2020-03-17] MEDS ORDERED: ALPR1 PO (12:49)
[2020-03-17] MEDS ORDERED: OMEP20ER PO (12:52)
[2020-03-17] MEDS ORDERED: CLON.1 PO (12:54)
[2020-03-17] MEDS ORDERED: WIXELA 250-501 EACH INH (12:56)
[2020-03-17 12:58] LABS: BASOPHILS ABSOLUTE AUTO 0.02 K/mm3 (0.00-0.23); BASOPHILS PERCENT AUTO 0 % (0-2); EOSINOPHILS PERCENT AUTO 0 % (0-6); Hematocrit 46.5 % (37.0-53.0); Hemoglobin 14.7 g/dL (13.5-17.5); IMMATURE GRAN ABSOLUTE AUTO 0.06 K/mm3 (0.00-0.10); IMMATURE GRAN PERCENT AUTO 0 % (0-1); LYMPHOCYTES PERCENT AUTO 11 % (21-46); MONOCYTES ABSOLUTE AUTO 0.63 K/mm3 (0.16-1.47); MONOCYTES PERCENT AUTO 5 % (4-13); Mean Corpuscular HGB 30.9 pg (26.0-34.0); Mean Corpuscular HGB Conc 31.6 g/dL (31.5-36.5); Mean Corpuscular Volume 98 fL (80-100); Mean Platelet Volume 11.2 fL (9.1-12.4); NEUTROPHILS PERCENT AUTO 84 % (41-73); Platelet Count 180 K/mm3 (150-400); RDW Coefficient Variation 16.1 % (11.7-14.2); RDW Standard Deviation 58.5 fL (35.1-46.3); Red Blood Cell Count 4.76 M/mm3 (4.30-5.90); White Blood Cell Count 13.51 K/mm3 (4.00-11.30)
[2020-03-17] MEDS ORDERED: CLONIDINE1 EAC1 TD (12:58)
[2020-03-17] MEDS ORDERED: ALBU90OI INH (13:02)
[2020-03-17] MEDS ORDERED: Diltiazem ER60 MG PO (13:16)
[2020-03-17] MEDS ORDERED: Budesonide0.5 MG/2 M NEB (13:19)
[2020-03-17] MEDS ORDERED: Duoneb 2.5-0.5 M3 ML NEB (13:20)
--- NOTE | 2020-03-17 18:48 | NUR ---
SHIFT SUMMARY PATIENT ARRIVED VIA GURNY. ALERT AND ORIENTED X4. [place]. PLACED A BED ALARM DUE TO THIS NURSE CONCERN THAT PATIENT MAY BE FORGETFUL. PATIENT HAS SLEPT SINCE ARRIVAL. NO COMPLAINTS OF ABDOMINAL PAIN. LACTIC ACID CALLED AND REPORTED TO THIS RN. NOTIFIED DR. DIAZ, NO CHANGES MADE AT THIS TIME. IV FLUIDS RUNNING PER ORDERS. PATIENT COMPLAINING OF FEELING CHILLED. GIVEN BLANKETS. TEMPERATURE NOTED AT 99.6. TELE MONITOR IN PLACE.
--- NOTE | 2020-03-17 23:28 | NUR ---
LACTIC ACID 1.1; PREVIOUS LAB DRAW WAS 2.9; FLY STACY RN, CHARGE NURSE ADVISED.
--- NOTE | 2020-03-18 04:15 | NUR ---
SHIFT SUMMARY: 84 Y/O MALE RESTED COMFORTABLY ALL SHIFT; DENIES PAIN OR NAUSEA; BED ALARM APPLIED; BED LOW POSITION WITH CALL LIGHT AT SIDE.
[2020-03-18 04:31] LABS: BASOPHILS ABSOLUTE AUTO 0.01 K/mm3 (0.00-0.23); BASOPHILS PERCENT AUTO 0 % (0-2); EOSINOPHILS PERCENT AUTO 0 % (0-6); Hematocrit 40.9 % (37.0-53.0); Hemoglobin 12.9 g/dL (13.5-17.5); IMMATURE GRAN ABSOLUTE AUTO 0.07 K/mm3 (0.00-0.10); IMMATURE GRAN PERCENT AUTO 1 % (0-1); LYMPHOCYTES ABSOLUTE AUTO 1.07 K/mm3 (0.84-5.20); LYMPHOCYTES PERCENT AUTO 7 % (21-46); MONOCYTES ABSOLUTE AUTO 0.67 K/mm3 (0.16-1.47); MONOCYTES PERCENT AUTO 5 % (4-13); Mean Corpuscular HGB Conc 31.5 g/dL (31.5-36.5); Mean Corpuscular Volume 98 fL (80-100); Mean Platelet Volume 10.2 fL (9.1-12.4); NEUTROPHILS ABSOLUTE AUTO 12.91 K/mm3 (1.96-9.15); NEUTROPHILS PERCENT AUTO 88 % (41-73); Platelet Count 153 K/mm3 (150-400); RDW Coefficient Variation 16.5 % (11.7-14.2); RDW Standard Deviation 60.1 fL (35.1-46.3); Red Blood Cell Count 4.16 M/mm3 (4.30-5.90); White Blood Cell Count 14.73 K/mm3 (4.00-11.30)
[2020-03-18 04:48] LABS: Albumin, Blood 2.7 g/dL (3.4-5.0); Albumin/Globulin Ratio 0.9 (0.8-1.8); Bilirubin, Total 0.7 mg/dL (0.1-1.0); Bun/Creatinine Ratio 14.8 (12.0-20.0); Calcium, Blood 8.2 mg/dL (8.5-10.1); Creatinine, Blood 1.42 mg/dL (0.60-1.20); Globulin, Blood 3.1 g/dL (2.2-4.0); Magnesium, Blood 2.2 mg/dL (1.6-2.4); Potassium, Blood 4.4 mmol/L (3.5-5.5); Total Protein, Blood 5.8 g/dL (6.4-8.2)
[2020-03-18 11:26] LABS: Adenovirus F 40/41 Not Detected (NOT DETECT); Astrovirus Not Detected (NOT DETECT); Campylobacter Sp Not Detected (NOT DETECT); Cryptosporidium Not Detected (NOT DETECT); Cyclospora Cayetanensis Not Detected (NOT DETECT); E. Coli O157 Not Detected (NOT DETECT); Entamoeba Histolytica Not Detected (NOT DETECT); Enteroaggregative E. coli-EAEC Not Detected (NOT DETECT); Enteropathogenic E. coli-EPEC Not Detected (NOT DETECT); Enterotoxigenic E. coli-ETEC Not Detected (NOT DETECT); Giardia Lamblia Not Detected (NOT DETECT); Norovirus GI/GII Not Detected (NOT DETECT); Plesiomonas Shigelloides Not Detected (NOT DETECT); Rotavirus A Not Detected (NOT DETECT); Salmonella Sp Not Detected (NOT DETECT); Sapovirus Not Detected (NOT DETECT); Shiga Toxin-prod E. coli-STEC Not Detected (NOT DETECT); Shigella/Enteroin E. coli-EIEC Not Detected (NOT DETECT); Vibrio Cholerae Not Detected (NOT DETECT); Vibrio Sp Not Detected (NOT DETECT); Yersinia Enterocolitica Not Detected (NOT DETECT)
--- NOTE | 2020-03-18 17:09 | NUR ---
Initial spiritual care note: Mr. Goldstein says he is feeling hopeful for complete recovery. He denies concerns, and was pleasantly dismissive. [facility] services will remain available.
--- NOTE | 2020-03-18 17:25 | NUR ---
PT HAS BEEN RESTING ALL DAY WITH NO COMPLAINTS. HE IS FRIENDLY WITH STAFF AND COMPLIANT WITH ALL CARES. HE HAS HAD NO PAIN, SOB, NVD THIS SHIFT. PT HAS LARGE BLISTER ON LEFT RICHARDS WHICH IS IN TACT. NO ACUTE CHANGES THIS SHIFT,CALL LIGHT WITHIN REACH.
[2020-03-19] MEDS ORDERED: BUPR75 PO (03:40)
--- NOTE | 2020-03-19 04:25 | NUR ---
SHIFT SUMMARY AA0X4. CHEESH-NA. SBY ASSIST TO RESTROOM, PT AMBULATED WELL. NO STOOL DURING SHIFT. BRUISING PRESENT ON BILATERAL ANKLES NO CHANGE SINCE BEGINNING OF SHIFT. DENIED PAIN DURING SHIFT.
[2020-03-19 05:26] LABS: BASOPHILS ABSOLUTE AUTO 0.01 K/mm3 (0.00-0.23); BASOPHILS PERCENT AUTO 0 % (0-2); EOSINOPHILS PERCENT AUTO 0 % (0-6); Hematocrit 38.2 % (37.0-53.0); Hemoglobin 12.1 g/dL (13.5-17.5); IMMATURE GRAN ABSOLUTE AUTO 0.03 K/mm3 (0.00-0.10); IMMATURE GRAN PERCENT AUTO 0 % (0-1); LYMPHOCYTES ABSOLUTE AUTO 1.06 K/mm3 (0.84-5.20); LYMPHOCYTES PERCENT AUTO 10 % (21-46); MONOCYTES PERCENT AUTO 7 % (4-13); Mean Corpuscular HGB 30.9 pg (26.0-34.0); Mean Corpuscular HGB Conc 31.7 g/dL (31.5-36.5); Mean Corpuscular Volume 98 fL (80-100); Mean Platelet Volume 10.4 fL (9.1-12.4); NEUTROPHILS ABSOLUTE AUTO 8.47 K/mm3 (1.96-9.15); NEUTROPHILS PERCENT AUTO 83 % (41-73); Platelet Count 151 K/mm3 (150-400); RDW Coefficient Variation 16.7 % (11.7-14.2); RDW Standard Deviation 60.5 fL (35.1-46.3); Red Blood Cell Count 3.91 M/mm3 (4.30-5.90); White Blood Cell Count 10.27 K/mm3 (4.00-11.30)
[2020-03-19 05:48] LABS: Alanine Aminotransfer (ALT/SGP 18 U/L (12-78); Albumin, Blood 2.5 g/dL (3.4-5.0); Albumin/Globulin Ratio 0.8 (0.8-1.8); Alk Phos 47 U/L (50-136); Anion Gap 4 mmol/L (6-16); Aspartate Aminotrans (AST/SGOT 15 U/L (12-37); Bilirubin, Total 0.5 mg/dL (0.1-1.0); Blood Urea Nitrogen 22 mg/dL (8-24); Bun/Creatinine Ratio 19.5 (12.0-20.0); CO2, Blood 26 mmol/L (21-32); Calcium, Blood 8.1 mg/dL (8.5-10.1); Chloride, Blood 114 mmol/L (98-108); Creatinine, Blood 1.13 mg/dL (0.60-1.20); Globulin, Blood 3.2 g/dL (2.2-4.0); Glomerular Filtration Rate >60 (60-); Glucose, Blood 102 mg/dL (70-99); Magnesium, Blood 2.2 mg/dL (1.6-2.4); Potassium, Blood 4.3 mmol/L (3.5-5.5); Sodium, Blood 144 mmol/L (136-145); Total Protein, Blood 5.7 g/dL (6.4-8.2)
--- NOTE | 2020-03-19 11:49 | NUR ---
CALLED DOCTOR SHELLEY OFFICE AND GAVE ORDER TO LIMB DRIVER REGARDING CONSULT FOR THIS PT. [id number]
[2020-03-19] MEDS ORDERED: Prednisone10 MG PO (15:31)
[2020-03-19] MEDS ORDERED: METR500 PO (15:32)
[2020-03-19] MEDS ORDERED: LACT PO (15:32)
--- NOTE | 2020-03-19 16:23 | NUR ---
PT TO DISCHARGE HOME TO . IV REMOVED WITH NO SS OF INFECTION NOTED. NURSE WENT OVER NEW MEDS WITH PT. MEDS FAXED TO PHARMACY OF CHOICE. PT DRESSED AND BELONGINGS PACKED . PT WHEELED DOWN TO WAITING IN CAR . PT TOLD TO FOLLOW UP WITH DOCTOR.
== END 2020-03-19 16:07 | disposition home health service (06) | DRG 872 ==
LOC: ER 11:16 → MEDS 15:11
PROVIDERS: Emergency Medicine; Internal Medicine; Nurse Practitioner Acute Care; ADMIT Internal Medicine
DX: A41.4 Sepsis due to anaerobes (principal); I48.20 Chronic atrial fibrillation, unspecified; E87.2 Acidosis; A04.72 Enterocolitis due to Clostridium difficile, not specified as recurrent; R65.20 Severe sepsis without septic shock; Z96.641 Presence of right artificial hip joint; Z87.891 Personal history of nicotine dependence; J44.9 Chronic obstructive pulmonary disease, unspecified; F41.1 Generalized anxiety disorder; I12.9 Hypertensive chronic kidney disease with stage 1 through stage 4 chronic kidney disease, or unspecified chronic kidney disease; N18.3 Chronic kidney disease, stage 3 (moderate); M31.6 Other giant cell arteritis; S90.822A Blister (nonthermal), left foot, initial encounter; Y92.9 Unspecified place or not applicable
CPT/HCPCS: 0097U; 36415; 74177; 80053; 83605; 83690; 83735; 83880; 85025; 85651; 86140; 87040; 87081; 87324; 93005; 93010; 94640; 94760; 96365-59; 96366; 97162; 97165; 99285-25; A9270-GY; J2543; J2765; J7030; J7512; Q9967

== ENCOUNTER → 2021-03-08 | Outpatient (CLI) | payer MEDICARE, BC ==
[~2021-03-08] MED LIST changes: +ALBU90OI INH; +ALPR1 PO; +ATOR10 PO; +BUPR75 PO; +BUPROPION XL150 M1 PO; +Budesonide0.5 MG/2 M NEB; +CLON.1 PO; +CLONIDINE1 EAC1 TD; +Diltiazem ER60 MG PO; +Duoneb 2.5-0.5 M3 ML NEB; +FLUC150A PO; +FURO40 PO; +LACT PO; +LISI5 PO; +METR500 PO; +OMEP20ER PO; +PRED1 PO; +Prednisone10 MG PO; +TIMO.5OPSO RIGHTEYE; +TIOT18 INH; +WIXELA 250-501 EACH INH; +XARELTO20 MG PO
== END | disposition home or self-care (01) ==
LOC: LAB SHORT 08:34
DX: C44.622 Squamous cell carcinoma of skin of right upper limb, including shoulder (principal)
CPT/HCPCS: 88305

== ENCOUNTER → 2021-03-11 | Outpatient (CLI) | payer MEDICARE, BC ==
[2021-03-11 13:31] LABS: Body Fluid Crystals NEG (NEGATIVE)
== END | disposition home or self-care (01) ==
LOC: LAB 12:15 → LAB SHORT 12:15
PROVIDERS: Internal Medicine
DX: M70.22 Olecranon bursitis, left elbow (principal)
CPT/HCPCS: 89060

== ENCOUNTER → 2021-11-01 | Outpatient (CLI) | payer MEDICARE, BC | END | disposition home or self-care (01) | LOC: LAB SHORT 08:28 | DX: C44.619 Basal cell carcinoma of skin of left upper limb, including shoulder (principal) | CPT/HCPCS: 88305 ==

== ENCOUNTER 2021-12-03 19:46 | Emergency (ER) | payer MEDICARE, BC ==
[~2021-12-03] VITALS: Ht 172.7 cm; Wt 81.7 kg
== END 2021-12-03 23:28 | disposition home or self-care (01) ==
LOC: ER 19:46
DX: S81.812A Laceration without foreign body, left lower leg, initial encounter (principal); I12.9 Hypertensive chronic kidney disease with stage 1 through stage 4 chronic kidney disease, or unspecified chronic kidney disease; N18.9 Chronic kidney disease, unspecified; I48.20 Chronic atrial fibrillation, unspecified; J44.9 Chronic obstructive pulmonary disease, unspecified; Z23 Encounter for immunization; Z88.6 Allergy status to analgesic agent; Z79.899 Other long term (current) drug therapy; W10.9XXA Fall (on) (from) unspecified stairs and steps, initial encounter
CPT/HCPCS: 90714; A9270

== ENCOUNTER 2021-12-05 09:55 | Emergency (ER) | payer MEDICARE, BC ==
[~2021-12-05] VITALS: Ht 172.7 cm; Wt 81.7 kg
== END 2021-12-05 11:00 | disposition home or self-care (01) ==
LOC: ER 09:55
DX: S81.812D Laceration without foreign body, left lower leg, subsequent encounter (principal); J44.9 Chronic obstructive pulmonary disease, unspecified; I12.9 Hypertensive chronic kidney disease with stage 1 through stage 4 chronic kidney disease, or unspecified chronic kidney disease; N18.9 Chronic kidney disease, unspecified; W19.XXXD Unspecified fall, subsequent encounter
CPT/HCPCS: 99282

== ENCOUNTER 2021-12-16 03:46 | Day surgery (SDC) | payer MEDICARE, BC | END 2021-12-16 12:00 | disposition home or self-care (01) | LOC: WOUND 03:46 | DX: S81.812A Laceration without foreign body, left lower leg, initial encounter (principal); S81.821A Laceration with foreign body, right lower leg, initial encounter; L08.9 Local infection of the skin and subcutaneous tissue, unspecified; I87.2 Venous insufficiency (chronic) (peripheral); Z88.8 Allergy status to other drugs, medicaments and biological substances; Z87.891 Personal history of nicotine dependence | CPT/HCPCS: A9270; G0463 ==

== ENCOUNTER 2021-12-22 02:20 | Day surgery (SDC) | payer MEDICARE, BC ==
[2021-12-23] MEDS ORDERED: METOPROLOL TART25 MG PO (10:14)
[2021-12-23] MEDS ORDERED: CLIN150 PO (10:14)
[2021-12-23] MEDS ORDERED: FUROSEMIDE40 MG PO (10:15)
[2021-12-23] MEDS ORDERED: ALPR1 PO (10:16)
[2021-12-23] MEDS ORDERED: OMEPRAZOLE20 M3 PO (10:16)
[2021-12-23] MEDS ORDERED: LISI5 PO (10:17)
[2021-12-23] MEDS ORDERED: Ventolin/Prove6.7 GM INH (10:17)
[2021-12-23] MEDS ORDERED: XARELTO20 M1 PO (10:17)
[2021-12-23] MEDS ORDERED: BUPR150ER PO (10:18)
[2021-12-23] MEDS ORDERED: TIOT18 INH (10:19)
[2021-12-23] MEDS ORDERED: FLUT1DIS2 INH (10:19)
[2021-12-23] MEDS ORDERED: OMEP20ER PO (11:26)
== END 2021-12-25 03:35 | disposition home or self-care (01) ==
LOC: WOUND 02:20
DX: S81.821A Laceration with foreign body, right lower leg, initial encounter (principal); X58.XXXA Exposure to other specified factors, initial encounter; L08.9 Local infection of the skin and subcutaneous tissue, unspecified; I87.2 Venous insufficiency (chronic) (peripheral)
CPT/HCPCS: A9270; G0463

== ENCOUNTER 2021-12-23 09:55 | Emergency (ER) | payer MEDICARE, BC ==
[~2021-12-23] VITALS: Ht 172.7 cm; Wt 81.7 kg
[2021-12-23] MEDS ORDERED: CLIN150 PO (10:14)
[2021-12-23] MEDS ORDERED: METOPROLOL TART25 MG PO (10:14)
[2021-12-23] MEDS ORDERED: FUROSEMIDE40 MG PO (10:15)
[2021-12-23] MEDS ORDERED: ALPR1 PO (10:16)
[2021-12-23] MEDS ORDERED: OMEPRAZOLE20 M3 PO (10:16)
[2021-12-23] MEDS ORDERED: Ventolin/Prove6.7 GM INH (10:17)
[2021-12-23] MEDS ORDERED: LISI5 PO (10:17)
[2021-12-23] MEDS ORDERED: XARELTO20 M1 PO (10:17)
[2021-12-23] MEDS ORDERED: BUPR150ER PO (10:18)
[2021-12-23] MEDS ORDERED: FLUT1DIS2 INH (10:19)
[2021-12-23] MEDS ORDERED: TIOT18 INH (10:19)
[2021-12-23 10:20] LABS: BASOPHILS ABSOLUTE AUTO 0.02 K/mm3 (0.00-0.23); BASOPHILS PERCENT AUTO 0 % (0-2); EOSINOPHILS ABSOLUTE AUTO 0.01 K/mm3 (0.00-0.68); EOSINOPHILS PERCENT AUTO 0 % (0-6); Hematocrit 34.8 % (37.0-53.0); Hemoglobin 10.7 g/dL (13.5-17.5); IMMATURE GRAN ABSOLUTE AUTO 0.06 K/mm3 (0.00-0.10); IMMATURE GRAN PERCENT AUTO 1 % (0-1); LYMPHOCYTES PERCENT AUTO 15 % (21-46); MONOCYTES ABSOLUTE AUTO 0.94 K/mm3 (0.16-1.47); MONOCYTES PERCENT AUTO 10 % (4-13); Mean Corpuscular HGB 30.7 pg (26.0-34.0); Mean Corpuscular HGB Conc 30.7 g/dL (31.5-36.5); Mean Corpuscular Volume 100 fL (80-100); Mean Platelet Volume 10.1 fL (9.1-12.4); NEUTROPHILS ABSOLUTE AUTO 7.15 K/mm3 (1.96-9.15); NEUTROPHILS PERCENT AUTO 75 % (41-73); Platelet Count 289 K/mm3 (150-400); RDW Standard Deviation 54.9 fL (35.1-46.3); Red Blood Cell Count 3.48 M/mm3 (4.30-5.90); White Blood Cell Count 9.58 K/mm3 (4.00-11.30)
[2021-12-23 10:49] LABS: Alanine Aminotransfer (ALT/SGP 26 U/L (12-78); Albumin, Blood 3.2 g/dL (3.4-5.0); Albumin/Globulin Ratio 0.9 (0.8-1.8); Alk Phos 83 U/L (50-136); Anion Gap 6 mmol/L (6-16); Aspartate Aminotrans (AST/SGOT 23 U/L (12-37); Bilirubin, Total 0.4 mg/dL (0.1-1.0); Blood Urea Nitrogen 28 mg/dL (8-24); Bun/Creatinine Ratio 18.7 (12.0-20.0); CO2, Blood 28 mmol/L (21-32); Calcium, Blood 9.2 mg/dL (8.5-10.1); Chloride, Blood 108 mmol/L (98-108); Globulin, Blood 3.5 g/dL (2.2-4.0); Glomerular Filtration Rate 44 (60-); Glucose, Blood 108 mg/dL (70-99); Sodium, Blood 142 mmol/L (136-145); Total Protein, Blood 6.7 g/dL (6.4-8.2); Troponin I <0.015 ng/mL (0.000-0.040)
[2021-12-23] MEDS ORDERED: OMEP20ER PO (11:26)
== END 2021-12-23 11:49 | disposition home or self-care (01) ==
LOC: ER 09:55
PROVIDERS: Emergency Medicine
DX: K21.9 Gastro-esophageal reflux disease without esophagitis (principal); I48.91 Unspecified atrial fibrillation; J44.9 Chronic obstructive pulmonary disease, unspecified; I10 Essential (primary) hypertension; Z79.899 Other long term (current) drug therapy
CPT/HCPCS: 36415; 71045; 80053; 83880; 84484; 85025; 93005; 93010; 99285-25; A9270

== ENCOUNTER 2021-12-30 00:37 | Day surgery (SDC) | payer MEDICARE, BC ==
[~2021-12-30 00:37] MED LIST changes: +BUPR150ER PO; +CLIN150 PO; +FLUT1DIS2 INH; +FUROSEMIDE40 MG PO; +METOPROLOL TART25 MG PO; +OMEPRAZOLE20 M3 PO; +Ventolin/Prove6.7 GM INH; +XARELTO20 M1 PO
== END 2021-12-30 23:34 | disposition home or self-care (01) ==
LOC: WOUND 00:37
DX: S81.822A Laceration with foreign body, left lower leg, initial encounter (principal); L97.822 Non-pressure chronic ulcer of other part of left lower leg with fat layer exposed; L08.9 Local infection of the skin and subcutaneous tissue, unspecified; I87.2 Venous insufficiency (chronic) (peripheral); I48.91 Unspecified atrial fibrillation; Z79.01 Long term (current) use of anticoagulants; X58.XXXA Exposure to other specified factors, initial encounter
CPT/HCPCS: A9270

== ENCOUNTER 2022-01-06 02:04 | Day surgery (SDC) | payer MEDICARE, BC | END 2022-01-06 12:00 | disposition home or self-care (01) | LOC: WOUND 02:04 | DX: S81.812A Laceration without foreign body, left lower leg, initial encounter (principal); L97.822 Non-pressure chronic ulcer of other part of left lower leg with fat layer exposed; L08.9 Local infection of the skin and subcutaneous tissue, unspecified; I87.2 Venous insufficiency (chronic) (peripheral); X58.XXXA Exposure to other specified factors, initial encounter | CPT/HCPCS: A9270 ==

== ENCOUNTER 2022-01-09 02:38 | Day surgery (SDC) | payer MEDICARE, BC | END 2022-01-09 23:15 | disposition home or self-care (01) | LOC: WOUND 02:38 | DX: L97.822 Non-pressure chronic ulcer of other part of left lower leg with fat layer exposed (principal); L08.9 Local infection of the skin and subcutaneous tissue, unspecified; I87.2 Venous insufficiency (chronic) (peripheral); S81.821D Laceration with foreign body, right lower leg, subsequent encounter ==

== ENCOUNTER 2022-01-13 02:58 | Day surgery (SDC) | payer MEDICARE, BC | END 2022-01-13 23:09 | disposition home or self-care (01) | LOC: WOUND 02:58 | DX: S81.822A Laceration with foreign body, left lower leg, initial encounter (principal); L97.822 Non-pressure chronic ulcer of other part of left lower leg with fat layer exposed; L08.9 Local infection of the skin and subcutaneous tissue, unspecified; I87.2 Venous insufficiency (chronic) (peripheral); W22.8XXA Striking against or struck by other objects, initial encounter | CPT/HCPCS: A9270 ==

== ENCOUNTER 2022-01-20 00:46 | Day surgery (SDC) | payer OTHER, MEDICARE, BC | END 2022-01-20 23:56 | disposition home or self-care (01) | LOC: WOUND 00:46 | DX: S81.812A Laceration without foreign body, left lower leg, initial encounter (principal); L08.9 Local infection of the skin and subcutaneous tissue, unspecified; I87.2 Venous insufficiency (chronic) (peripheral); I48.91 Unspecified atrial fibrillation; Z79.01 Long term (current) use of anticoagulants; W01.10XA Fall on same level from slipping, tripping and stumbling with subsequent striking against unspecified object, initial encounter | CPT/HCPCS: A9270 ==

== ENCOUNTER 2022-01-27 01:13 | Day surgery (SDC) | payer MEDICARE, BC | END 2022-01-27 22:51 | disposition home or self-care (01) | LOC: WOUND 01:13 | DX: S81.822A Laceration with foreign body, left lower leg, initial encounter (principal); L97.822 Non-pressure chronic ulcer of other part of left lower leg with fat layer exposed; L08.9 Local infection of the skin and subcutaneous tissue, unspecified; I87.2 Venous insufficiency (chronic) (peripheral); X58.XXXA Exposure to other specified factors, initial encounter | CPT/HCPCS: A9270 ==

== ENCOUNTER 2022-02-03 00:31 | Day surgery (SDC) | payer MEDICARE, BC | END 2022-02-03 23:55 | disposition home or self-care (01) | LOC: WOUND 00:31 | DX: S81.821A Laceration with foreign body, right lower leg, initial encounter (principal); L97.822 Non-pressure chronic ulcer of other part of left lower leg with fat layer exposed; L08.9 Local infection of the skin and subcutaneous tissue, unspecified; I87.2 Venous insufficiency (chronic) (peripheral) | CPT/HCPCS: A9270 ==

== ENCOUNTER 2022-02-10 02:40 | Day surgery (SDC) | payer MEDICARE, BC ==
[~2022-02-10 02:40] MED LIST changes: -FLUT1DIS2 INH; +FLUT1DIS5 INH; +XARELTO15 MG PO; -XARELTO20 M1 PO
[2022-03-09] MEDS ORDERED: RAYOS5 M1 PO (00:32)
[2022-05-04] MEDS ORDERED: CLONIDINE1 EA17 TD (21:50)
[2022-05-07] MEDS ORDERED: AMOCLA500 PO (10:43)
== END 2022-02-10 23:17 | disposition home or self-care (01) ==
LOC: WOUND 02:40
DX: L97.825 Non-pressure chronic ulcer of other part of left lower leg with muscle involvement without evidence of necrosis (principal); L08.9 Local infection of the skin and subcutaneous tissue, unspecified; I87.2 Venous insufficiency (chronic) (peripheral)
CPT/HCPCS: A9270

== ENCOUNTER 2022-02-17 03:08 | Day surgery (SDC) | payer MEDICARE, BC ==
[~2022-02-17 03:08] MED LIST changes: +FLUT1DIS2 INH; -FLUT1DIS5 INH; -XARELTO15 MG PO; +XARELTO20 M1 PO
== END 2022-02-17 23:00 | disposition home or self-care (01) ==
LOC: WOUND 03:08
DX: S81.821D Laceration with foreign body, right lower leg, subsequent encounter (principal); L97.822 Non-pressure chronic ulcer of other part of left lower leg with fat layer exposed; L08.9 Local infection of the skin and subcutaneous tissue, unspecified; I87.2 Venous insufficiency (chronic) (peripheral)

== ENCOUNTER 2022-02-24 01:27 | Day surgery (SDC) | payer MEDICARE, BC | END 2022-02-24 23:21 | disposition home or self-care (01) | LOC: WOUND 01:27 | DX: S81.822A Laceration with foreign body, left lower leg, initial encounter (principal); L97.822 Non-pressure chronic ulcer of other part of left lower leg with fat layer exposed; L08.9 Local infection of the skin and subcutaneous tissue, unspecified; I87.2 Venous insufficiency (chronic) (peripheral); W10.9XXA Fall (on) (from) unspecified stairs and steps, initial encounter | CPT/HCPCS: A9270 ==

== ENCOUNTER 2022-03-03 00:36 | Day surgery (SDC) | payer MEDICARE, BC | END 2022-03-03 23:12 | disposition home or self-care (01) | LOC: WOUND 00:36 | DX: S81.821D Laceration with foreign body, right lower leg, subsequent encounter (principal); L97.822 Non-pressure chronic ulcer of other part of left lower leg with fat layer exposed; L08.9 Local infection of the skin and subcutaneous tissue, unspecified; I87.2 Venous insufficiency (chronic) (peripheral) ==

== ENCOUNTER → 2022-03-07 | Outpatient (CLI) | payer MEDICARE, BC ==
[~2022-03-07] MED LIST changes: +AMOCLA875 PO; +DOCU100 PO; +DORZOPSO RIGHTEYE; +LATA.005SO RIGHTEYE; +MULVITA PO; +VISBIOME 112.51 EACH PO; +VITAMIN B122500 MC1 PO; +Vitamin D1000 UNI1 PO
== END | disposition home or self-care (01) ==
LOC: LAB SHORT 08:07 → PLD 08:07 → LAB 08:07
DX: C44.311 Basal cell carcinoma of skin of nose (principal); D48.5 Neoplasm of uncertain behavior of skin
CPT/HCPCS: 88305

== ENCOUNTER → 2022-03-07 | Outpatient (CLI) | payer MEDICARE, BC ==
[~2022-03-07] MED LIST changes: -AMOCLA875 PO; -DORZOPSO RIGHTEYE; -LATA.005SO RIGHTEYE; -VISBIOME 112.51 EACH PO
== END | disposition home or self-care (01) ==
LOC: LAB SHORT 14:20
DX: L08.0 Pyoderma (principal)
CPT/HCPCS: 87070; 87077; 87147; 87186; 87205

== ENCOUNTER 2022-03-08 23:13 | Inpatient (IN) | payer MEDICARE, BC ==
[~2022-03-08] VITALS: Ht 172.7 cm; Wt 88.6 kg
[~2022-03-08 23:13] MED LIST changes: -DOCU100 PO; -MULVITA PO; -VITAMIN B122500 MC1 PO; -Vitamin D1000 UNI1 PO
[2022-03-09] MEDS ORDERED: Prednisone10 MG PO (00:32)
[2022-03-09 01:04] LABS: BASOPHILS ABSOLUTE AUTO 0.01 K/mm3 (0.00-0.23); BASOPHILS PERCENT AUTO 0 % (0-2); EOSINOPHILS PERCENT AUTO 0 % (0-6); Hematocrit 43.6 % (37.0-53.0); Hemoglobin 13.6 g/dL (13.5-17.5); IMMATURE GRAN ABSOLUTE AUTO 0.03 K/mm3 (0.00-0.10); IMMATURE GRAN PERCENT AUTO 0 % (0-1); LYMPHOCYTES ABSOLUTE AUTO 0.22 K/mm3 (0.84-5.20); LYMPHOCYTES PERCENT AUTO 3 % (21-46); MONOCYTES ABSOLUTE AUTO 0.09 K/mm3 (0.16-1.47); MONOCYTES PERCENT AUTO 1 % (4-13); Mean Corpuscular HGB 30.5 pg (26.0-34.0); Mean Corpuscular HGB Conc 31.2 g/dL (31.5-36.5); Mean Corpuscular Volume 98 fL (80-100); Mean Platelet Volume 10.6 fL (9.1-12.4); NEUTROPHILS PERCENT AUTO 95 % (41-73); Platelet Count 168 K/mm3 (150-400); RDW Coefficient Variation 15.7 % (11.7-14.2); RDW Standard Deviation 56.7 fL (35.1-46.3); Red Blood Cell Count 4.46 M/mm3 (4.30-5.90); White Blood Cell Count 6.95 K/mm3 (4.00-11.30)
[2022-03-09 01:07] LABS: Source, Urine Voided
[2022-03-09 01:11] LABS: Bilirubin, Urine Neg (Neg); Blood, Urine Neg (Neg); Glucose Qualitative, Urine Neg (Neg); Ketones, Urine Neg (Neg); Leukocyte Esterase, Urine Neg (Neg); Nitrite, Urine Neg (Neg); Protein, Urine 1+ (Neg); Urobilinogen, Urine NORM (Normal)
[2022-03-09 01:16] LABS: Appearance, Urine Clear (Clear); Color, Urine Yellow (P-Yellow)
[2022-03-09 01:18] LABS: Influenza A, PCR NEGATIVE (NEGATIVE); Influenza B, PCR NEGATIVE (NEGATIVE); Resp Syncytial Virus, PCR NEGATIVE (NEGATIVE); SARS-Cov-2 (COVID-19) PCR, MMC NEGATIVE (NEGATIVE)
[2022-03-09 01:22] LABS: Albumin, Blood 3.3 g/dL (3.4-5.0); Albumin/Globulin Ratio 0.9 (0.8-1.8); Bilirubin, Total 0.5 mg/dL (0.1-1.0); Bun/Creatinine Ratio 19.3 (12.0-20.0); Calcium, Blood 9.1 mg/dL (8.5-10.1); Creatinine, Blood 1.61 mg/dL (0.60-1.20); Globulin, Blood 3.5 g/dL (2.2-4.0); Potassium, Blood 4.2 mmol/L (3.5-5.5); Total Protein, Blood 6.8 g/dL (6.4-8.2)
[2022-03-09 05:32] LABS: PCO2 Arterial 43.8 mmHg (35-45); PO2 Arterial 75.8 mmHg (80-100)
[2022-03-09 05:58] LABS: Hematocrit 37.7 % (37.0-53.0); Hemoglobin 11.5 g/dL (13.5-17.5); Mean Corpuscular HGB 30.2 pg (26.0-34.0); Mean Corpuscular HGB Conc 30.5 g/dL (31.5-36.5); Mean Corpuscular Volume 99 fL (80-100); Mean Platelet Volume 9.8 fL (9.1-12.4); Platelet Count 132 K/mm3 (150-400); RDW Coefficient Variation 15.9 % (11.7-14.2); RDW Standard Deviation 57.7 fL (35.1-46.3); Red Blood Cell Count 3.81 M/mm3 (4.30-5.90)
[2022-03-09 06:19] LABS: BAND PERCENT MAN 15 % (0-8); BASOPHILS PERCENT MAN 0 % (0-2); Bun/Creatinine Ratio 18.3 (12.0-20.0); Calcium, Blood 8.2 mg/dL (8.5-10.1); Creatinine, Blood 1.53 mg/dL (0.60-1.20); EOSINOPHILS PERCENT MAN 0 % (0-6); LYMPHOCYTES PERCENT MAN 3 % (21-46); MONOCYTES ABSOLUTE MAN 0.26 K/mm3 (0.16-1.47); MONOCYTES PERCENT MAN 2 % (4-13); NEUTROPHILS ABSOLUTE MAN 12.73 K/mm3 (1.96-9.15); Potassium, Blood 3.2 mmol/L (3.5-5.5); SEG NEUTROPHILS PERCENT MAN 80 % (41-73); TOTAL CELLS COUNTED 100
--- NOTE | 2022-03-09 07:35 | NUR ---
Admit/Shift Summary: Pt admitted to the unit at 0545. Arrived via gurney. [place], AOx3, able to answer all questions appropriatly. Came to the ER due to weakness, N/V, and HTN. In ER started to have shaking, temp of 101.8 rectally. BP dropped down in the 70's so they started levophed and placed a central line. Got patient settled in room. Lung sounds clear, denies sob, cough or congestion. Afib on the monitor rate in the 80's. Denies chest pain. Abdomin distended, BTx4. Very warm to the touch, bright red skin noted to BUE and mild to chest. no other redness noted. There is a ulcer to the left lateral calf, open to air, slough noted. HX of MRSA. Picture was taken and placed on chart. IVF bolus completed started regular fluids at 100ml/hr. BP soft in the 80's. Noted a Clondine patch to the right arm that I removed. Noted that this was not on patient list. Levo currently infusing at 4mcq. Report given to alicia.
--- NOTE | 2022-03-09 10:32 | NUR ---
Spiritual Care Visit Pt. is sitting up in bed and is awake. Pt. welcomes my visit. Pts. spouse is present. Pt. is unsettled about the sudden onset of his fever. Through theraputic listening learn that the Pts. daughter was also hopitalized yesterday in [place], [place]. A calming presence and pastoral cemetery counselor resulted in Pt. displaying agreement and resolve to identify the source and cause of this infection. Pt. verbalized waiting to hear what the doctors say about his lab work. [place] with Pt. and Spouse. Pt. verbalized gratitude for the spiritual care visit.
[2022-03-09] MEDS ORDERED: MULVITA PO (11:41)
[2022-03-09] MEDS ORDERED: Vitamin D1000 UNI1 PO (11:42)
[2022-03-09] MEDS ORDERED: VITAMIN B122500 MC1 PO (11:43)
[2022-03-09] MEDS ORDERED: DOCU100 PO (11:43)
[2022-03-09] MEDS ORDERED: ATOR10 PO (11:47)
--- NOTE | 2022-03-09 18:10 | NUR ---
SUMMARY PT A/O X4 ALL DAY. GAINING MORE STRENGTH. LEVOPHED WAS TITRATED OFF THIS EVENING. DR. BURGESS STARTED HYDROCORTISONE IV AND PT GOT ANOTHER NS BOLUS. PT STATES HE FEELS MUCH BETTER. AFEBRILE TODAY. GOT UP TO CHAIR WITH ONE PERSON ASSIST FOR LUNCH. SWABBED WOUND AND SENT FOR CULTURE. NO SIGN OF DISTRESS. CALL LIGHT IN REACH. AT BEDSIDE.
--- NOTE | 2022-03-09 20:00 | NUR ---
Assumed Care. AOx3, just finished talking to daughter on phone. Answers all questions appropriatly, [place]. Makes all needs known. Follows directions. Denies pain or discomfort. Lung sounds diminished but clear. Removed NC due to sats being 100% on 2 liters. Now sats are mid 90's. Fingers are cynotic, states this is his norm. Hands are always cold. Placed socks on hands per request to help keep warm. No cough or congestion noted. Denies SOB. Afib on the monitor rate 80-100's. Occationally he does jump up to 130's but never sustains. Denies chest pain. Occational PVC's noted. BP has been stable with MAP >65. BM on dayshift today. Denies any N/V. Able to use urinal. Skin cool, dressing to left calf intact. Edema to BLE, elevated on pillows. All fluids stopped. Warm blankets given. Denies any other needs. CAll light is in reach, bed in low position.
--- NOTE | 2022-03-10 01:10 | NUR ---
Spoke to Dr. Hutton in r/t HR sustaining 110-130's, Afib. Order to restart metoprolol with first dose now. Patient requested to have xanax restarted for his anxiety as well. Orders placed.
[2022-03-10 04:01] LABS: Hematocrit 36.3 % (37.0-53.0); Hemoglobin 11.1 g/dL (13.5-17.5); Mean Corpuscular HGB 29.8 pg (26.0-34.0); Mean Corpuscular HGB Conc 30.6 g/dL (31.5-36.5); Mean Corpuscular Volume 97 fL (80-100); Mean Platelet Volume 10.5 fL (9.1-12.4); Platelet Count 120 K/mm3 (150-400); RDW Coefficient Variation 16.2 % (11.7-14.2); RDW Standard Deviation 58.4 fL (35.1-46.3); Red Blood Cell Count 3.73 M/mm3 (4.30-5.90); White Blood Cell Count 17.64 K/mm3 (4.00-11.30)
[2022-03-10 04:21] LABS: Albumin, Blood 2.4 g/dL (3.4-5.0); Albumin/Globulin Ratio 0.8 (0.8-1.8); Bilirubin, Total 0.4 mg/dL (0.1-1.0); Bun/Creatinine Ratio 17.7 (12.0-20.0); Calcium, Blood 8.2 mg/dL (8.5-10.1); Creatinine, Blood 1.47 mg/dL (0.60-1.20); Globulin, Blood 2.9 g/dL (2.2-4.0); Potassium, Blood 3.9 mmol/L (3.5-5.5); Total Protein, Blood 5.3 g/dL (6.4-8.2)
[2022-03-10 05:42] LABS: BAND PERCENT MAN 13 % (0-8); BASOPHILS PERCENT MAN 0 % (0-2); EOSINOPHILS PERCENT MAN 0 % (0-6); LYMPHOCYTES ABSOLUTE MAN 0.17 K/mm3 (0.84-5.20); LYMPHOCYTES PERCENT MAN 1 % (21-46); MONOCYTES ABSOLUTE MAN 0.52 K/mm3 (0.16-1.47); MONOCYTES PERCENT MAN 3 % (4-13); NEUTROPHILS ABSOLUTE MAN 16.93 K/mm3 (1.96-9.15); SEG NEUTROPHILS PERCENT MAN 83 % (41-73); TOTAL CELLS COUNTED 100
--- NOTE | 2022-03-10 06:04 | NUR ---
SHIFT SUMMARY: AOx3, able to make all needs known. Able to shift self slightly in bed. Afebrile. Denies any pain. [place]AD [place] BAND, hearing aids at bedside. LS-clear t/o, no cough or congestion. Sats >90% on RA. Occational Apnea periods noted with drop of sats to 88-89%. Reported feeling SOB off and on tonight in correlation to Fluttering of HR he stated. Placed back on 2 Liters NC for comfort and Apnea. Sats 97-98% on 2 liters resting. Very irregular Afib, with few pauses, and occational PVC's. Rate has been all over 90-140's. Did sustain in 120-130's at which Dr. Hutton was notifed. Pt placed back on his metoprolol. Some improvement noted after dose with drop of HR 110's to 120's. Slightest movement of him shifting in bed causes HR to increase in the 120-130's. He stated the flutter last seconds off and on all night. BP has been soft but stable with MAP >65. BTx4, soft, mild distention. Uses urinal independently clear yellow output. Skin cool, pale, dressing to left calf still intact. WBC increased to 17.64. Blood cultures were positive for gram + cocci in chains. will continue to monitor. Call light remains in reach.
--- NOTE | 2022-03-10 08:33 | NUR ---
DR HERNANDEZ ROUNDED, PATIENT STATUS CHANGED TO PCU, BUN AND CREATININE IMPRVING, NO OTHER NEW ORDERS. PATIENT ATE 100%, PLESANT AND COOPERATIVE, HEARING AIDS IN, CALL LIGHT WITH IN REACH
--- NOTE | 2022-03-10 09:33 | NUR ---
PT PT IN WORKING WITH PATIENT, PATIENT TOLERATED WELL, DENIES PAIN
--- NOTE | 2022-03-10 10:06 | NUR ---
ECHO ECHO IN ROOM NOW, STAND BY ASSIST TRANSFER FROM CHAIR TO BED, PATIENT TOLERATING WITH EASE, SATS 97% ON RA
--- NOTE | 2022-03-10 11:10 | NUR ---
PATIENT SLEEPING IN ROOM, SATS 96% ON RA, NO DISTRESS
--- NOTE | 2022-03-10 18:54 | NUR ---
ALERT AND ORIENTED TO ALL, PLEASANT TO ALL CARE, AT BEDSIDE, PT/OT WORKED WITH PATIENT, STEADY GAIT, STAND BY ASSIST, [place], BILATERAL HEARING AIDS WITH PATIENT, REPORT TO PM RN, PATIENT TO BE TRANSFERRED TO PCU
--- NOTE | 2022-03-10 19:40 | NUR ---
SUMMARY. ASSUMED CARE AND TRANSFERRED PATIENT TO PCU AT APPROXIMATELY 1940. PT ALERT AND ORIENTED, STABLE VITAL SIGNS, NO ACUTE NEEDS. ALL PATIENT BELONGINGS TAKEN TO PCU WITH PATIENT. REPORT GIVEN TO SHANNAN CROWE.
[2022-03-11 04:03] LABS: BASOPHILS ABSOLUTE AUTO 0.01 K/mm3 (0.00-0.23); BASOPHILS PERCENT AUTO 0 % (0-2); EOSINOPHILS PERCENT AUTO 0 % (0-6); Hematocrit 36.6 % (37.0-53.0); Hemoglobin 11.4 g/dL (13.5-17.5); IMMATURE GRAN ABSOLUTE AUTO 0.14 K/mm3 (0.00-0.10); IMMATURE GRAN PERCENT AUTO 1 % (0-1); LYMPHOCYTES ABSOLUTE AUTO 0.59 K/mm3 (0.84-5.20); LYMPHOCYTES PERCENT AUTO 4 % (21-46); MONOCYTES ABSOLUTE AUTO 0.64 K/mm3 (0.16-1.47); MONOCYTES PERCENT AUTO 4 % (4-13); Mean Corpuscular HGB 30.4 pg (26.0-34.0); Mean Corpuscular HGB Conc 31.1 g/dL (31.5-36.5); Mean Corpuscular Volume 98 fL (80-100); Mean Platelet Volume 11.3 fL (9.1-12.4); NEUTROPHILS ABSOLUTE AUTO 14.83 K/mm3 (1.96-9.15); NEUTROPHILS PERCENT AUTO 92 % (41-73); Platelet Count 113 K/mm3 (150-400); RDW Coefficient Variation 16.2 % (11.7-14.2); RDW Standard Deviation 57.9 fL (35.1-46.3); Red Blood Cell Count 3.75 M/mm3 (4.30-5.90); White Blood Cell Count 16.21 K/mm3 (4.00-11.30)
[2022-03-11 04:27] LABS: Albumin, Blood 2.4 g/dL (3.4-5.0); Anion Gap 4 mmol/L (6-16); Blood Urea Nitrogen 35 mg/dL (8-24); Bun/Creatinine Ratio 25.2 (12.0-20.0); CO2, Blood 29 mmol/L (21-32); Calcium, Blood 9.2 mg/dL (8.5-10.1); Chloride, Blood 111 mmol/L (98-108); Creatinine, Blood 1.39 mg/dL (0.60-1.20); Glomerular Filtration Rate 48 (60-); Glucose, Blood 129 mg/dL (70-99); Phosphorus, Blood 3.1 mg/dL (2.5-4.9); Potassium, Blood 4.4 mmol/L (3.5-5.5); Sodium, Blood 144 mmol/L (136-145)
--- NOTE | 2022-03-11 05:31 | NUR ---
SHIFT SUMMARY ICU TRANSFER. PT ALERT AND ORIENTED X4. AFEBRILE. HR AFIB 80-100'S. HARD OF HEARING. ON RA SATS OVER 98% WHILE AWAKE. ON 2L NC WHILE ASLEEP. ABLE TO AMBULATE TO BATHROOM FOR ADL'S. SLEPT WELL AFTER REQUESTING PRN XANAX. SLEEPING WITH CALL ALARM AT SIDE. WILL CONTINUE TO MONITOR UNTIL REPORT GIVEN TO DAYSHIFT RN
--- NOTE | 2022-03-11 16:47 | NUR ---
SHIFT SUMMARY PT REMAINS ALERT AND ORIENTED. VS STABLE. PT ON RA ALL SHIFT WITH SATS >90%. HR AFIB 80'S. PT DENIES ANY PAIN. PT ABLE TO STAND AND AMBULATE TO BATHROOM NEEDED WITH MINIMAL ASSISTANCE. WILL CONTINUE TO MONITOR AND REPORT TO ONCOMING RN
[2022-03-12 03:44] LABS: BASOPHILS ABSOLUTE AUTO 0.01 K/mm3 (0.00-0.23); BASOPHILS PERCENT AUTO 0 % (0-2); EOSINOPHILS PERCENT AUTO 0 % (0-6); Hematocrit 40.3 % (37.0-53.0); Hemoglobin 12.4 g/dL (13.5-17.5); IMMATURE GRAN ABSOLUTE AUTO 0.07 K/mm3 (0.00-0.10); IMMATURE GRAN PERCENT AUTO 1 % (0-1); LYMPHOCYTES ABSOLUTE AUTO 0.75 K/mm3 (0.84-5.20); LYMPHOCYTES PERCENT AUTO 6 % (21-46); MONOCYTES ABSOLUTE AUTO 0.59 K/mm3 (0.16-1.47); MONOCYTES PERCENT AUTO 5 % (4-13); Mean Corpuscular HGB 29.9 pg (26.0-34.0); Mean Corpuscular HGB Conc 30.8 g/dL (31.5-36.5); Mean Corpuscular Volume 97 fL (80-100); Mean Platelet Volume 10.3 fL (9.1-12.4); NEUTROPHILS ABSOLUTE AUTO 11.52 K/mm3 (1.96-9.15); NEUTROPHILS PERCENT AUTO 89 % (41-73); NRBC ABSOLUTE 0.03 K/mm3 (0.00-0.02); NRBC Auto 0.2 /100 WBC (0.0-0.2); Platelet Count 134 K/mm3 (150-400); RDW Standard Deviation 57.6 fL (35.1-46.3); Red Blood Cell Count 4.15 M/mm3 (4.30-5.90); White Blood Cell Count 12.94 K/mm3 (4.00-11.30)
[2022-03-12 04:07] LABS: Albumin, Blood 2.5 g/dL (3.4-5.0); Anion Gap 4 mmol/L (6-16); Blood Urea Nitrogen 39 mg/dL (8-24); Bun/Creatinine Ratio 33.9 (12.0-20.0); CO2, Blood 28 mmol/L (21-32); Calcium, Blood 9.9 mg/dL (8.5-10.1); Chloride, Blood 112 mmol/L (98-108); Creatinine, Blood 1.15 mg/dL (0.60-1.20); Glomerular Filtration Rate >60 (60-); Glucose, Blood 98 mg/dL (70-99); Phosphorus, Blood 2.6 mg/dL (2.5-4.9); Potassium, Blood 3.7 mmol/L (3.5-5.5); Sodium, Blood 144 mmol/L (136-145)
--- NOTE | 2022-03-12 05:26 | NUR ---
SHIFT SUMMARY PT ALERT AND ORIENTED X4. PLEASANT AND COOPERATIVE TO CARE. AFEBRILE. HR AFIB 90'S, TACHY TO 150'S WITH EXTENDED ACTIVITY. HYPERTENSIVE TO SYSTOLIC 170'S. RELIEVED WITH IV HYDRALAZINE. ON RA WHILE AWAKE, SATS OVER 95%. ON 2L NC WHILE SLEEPING. C/0 05/05 HEADACHE. RELIEVED PER EMAR. ABLE TO INDEPENDTLY AMBULATE FOR ADL'S. IN BED SLEEPING WITH CALL ALARM AT SIDE. WILL CONTINUE TO MONITOR UNTIL REPORT GIVEN TO DAYSHIFT RN
--- NOTE | 2022-03-12 13:00 | NUR ---
PT REFUSED TO HAVE ME CHECK HIS NOON VITALS STATING HE WOULD LIKE TO BE LEFT ALONE AND SLEEP. WILL ATTEMPT TO TAKE VITAL SIGNS AGAIN. CONTINUOUS PULSE OXIMETRY SHOWS 97% AND HR AFIB 90'S. WILL CONTINUE TO MONITOR
--- NOTE | 2022-03-12 16:37 | NUR ---
SHIFT SUMMARY PT REMAINS ALERT AND ORIENTED. VS STABLE. PT HAS DENIED ANY PAIN THIS AFTERNOON. PT STATES HE WAS UNABLE TO SLEEP LAST NIGHT AND HAS BEEN SLEEPING ON AND OFF THIS SHIFT. PT INDEPENDENT TO THE BATHROOM. PT STATES HE HAD A BM THIS AM. AT BEDSIDE. REPORT GIVEN TO BEN CROWE TO ASSUME CARE
[2022-03-13 04:33] LABS: BASOPHILS ABSOLUTE AUTO 0.01 K/mm3 (0.00-0.23); BASOPHILS PERCENT AUTO 0 % (0-2); EOSINOPHILS PERCENT AUTO 0 % (0-6); Hematocrit 38.6 % (37.0-53.0); Hemoglobin 11.8 g/dL (13.5-17.5); IMMATURE GRAN ABSOLUTE AUTO 0.05 K/mm3 (0.00-0.10); IMMATURE GRAN PERCENT AUTO 1 % (0-1); LYMPHOCYTES ABSOLUTE AUTO 0.73 K/mm3 (0.84-5.20); LYMPHOCYTES PERCENT AUTO 7 % (21-46); MONOCYTES ABSOLUTE AUTO 0.75 K/mm3 (0.16-1.47); MONOCYTES PERCENT AUTO 7 % (4-13); Mean Corpuscular HGB 30.1 pg (26.0-34.0); Mean Corpuscular HGB Conc 30.6 g/dL (31.5-36.5); Mean Corpuscular Volume 99 fL (80-100); Mean Platelet Volume 11.5 fL (9.1-12.4); NEUTROPHILS ABSOLUTE AUTO 8.88 K/mm3 (1.96-9.15); NEUTROPHILS PERCENT AUTO 85 % (41-73); NRBC ABSOLUTE 0.02 K/mm3 (0.00-0.02); NRBC Auto 0.2 /100 WBC (0.0-0.2); Platelet Count 134 K/mm3 (150-400); RDW Coefficient Variation 16.2 % (11.7-14.2); RDW Standard Deviation 58.5 fL (35.1-46.3); Red Blood Cell Count 3.92 M/mm3 (4.30-5.90); White Blood Cell Count 10.42 K/mm3 (4.00-11.30)
--- NOTE | 2022-03-13 05:08 | NUR ---
SHIFT SUMMARY PT ALERT AND ORIENTED X4. HR AFIB 80'S-110'S. TACHY WITH ACTIVITY TO 130'S. AFEBRILE. BP HYPERTENSIVE TO 170'S SYSTOLIC, RELIEVED PER EMAR. ON RA WHILE AWAKE, SATS OVER 95%. ON 1-2L NC WHILE ASLEEP. C/O 6-10 CONSTANT HEADACHE. NO RELIEF WITH TYLENOL. RELIEF WITH 5MG OXY. RIJ ACCESS SALINE LOCKED. PT INDEPENDENT FOR ADLS. RESTLESS TONIGHT, STATES HE STRUGGLED WITH SLEEPING, ALTERNATING BETWEEN TRYING THE CHAIR AND TRYING THE BED. IN CHAIR SLEEPING WITH CALL ALARM AT SIDE. WILL CONTINUE TO MONITOR UNTIL REPORT GIVEN TO DAYSKIMBERLY CROWE
[2022-03-13 07:31] LABS: International Normalized Ratio 1.05
--- NOTE | 2022-03-13 09:50 | NUR ---
UPDATE PT TAKEN DOWN TO IMAGING FOR BIOSPY. WILL AWAIT RETURN
[2022-03-13] MEDS ORDERED: DORZOPSO RIGHTEYE (13:44)
[2022-03-13] MEDS ORDERED: LATA.005SO RIGHTEYE (13:44)
[2022-03-13] MEDS ORDERED: TIMO.5OPSO RIGHTEYE (13:45)
[2022-03-13] MEDS ORDERED: VISBIOME 112.51 EACH PO (13:46)
[2022-03-13] MEDS ORDERED: AMOCLA875 PO (13:47)
--- NOTE | 2022-03-13 14:59 | NUR ---
UPDATED DISCHARGE INSTRUCTIONS PROVIDED. INSTRUCTIONS GONE OVER WITH PT AND SPOUSE. PT EDUCATED ON NEW MEDICATIONS AND FOLLOW-UP. ALL QUESTIONS ANSWERED. PT TO BE TAKEN OUT VIA WC
--- NOTE | 2022-03-13 15:56 | NUR ---
Received referral from nurse group care worker (Marlene Holliday) on 03/13/2022. Patient discharged 03/13/2022 with orders for home health and elected [facility]. Patient was admitted to [facility] on 03/09/2022 due to severe sepsis. Contacted patient at home today- 03/13/2022 to further discuss home health services. Spoke with patient's (Dianne Goldstein) who states she isn't sure patient is homebound. Patient's states patient has an appointment with PCP tomorrow- 03/14/2022. Discussed with patient's that patient could discuss the home Health referral with his PCP and PCP could make the referral if she felt patient was homebound. Patient's is agreeable to the above. No further interventions [facility] Referral Liaison
== END 2022-03-13 14:55 | disposition home health service (06) | DRG 871 ==
LOC: ER 23:13 → ICUW 03-09 04:52 → PCU 03-10 19:41
PROVIDERS: Emergency Medicine; Internal Medicine; Physician Assistant; Student in an Organized Health Care Education/Training Program; ADMIT Family Medicine
PROC: 02HV33Z Insertion of Infusion Device into Superior Vena Cava, Percutaneous Approach (ICD-10-PCS; principal; 2022-03-09)
PROC: B518ZZA Fluoroscopy of Superior Vena Cava, Guidance (ICD-10-PCS; 2022-03-09)
PROC: 3E03329 Introduction of Other Anti-infective into Peripheral Vein, Percutaneous Approach (ICD-10-PCS; 2022-03-09)
PROC: 3E033XZ Introduction of Vasopressor into Peripheral Vein, Percutaneous Approach (ICD-10-PCS; 2022-03-09)
PROC: 0FB23ZX Excision of Left Lobe Liver, Percutaneous Approach, Diagnostic (ICD-10-PCS; 2022-03-12)
DX: A40.8 Other streptococcal sepsis (principal); J96.01 Acute respiratory failure with hypoxia; R65.21 Severe sepsis with septic shock; K75.0 Abscess of liver; L03.116 Cellulitis of left lower limb; C85.90 Non-Hodgkin lymphoma, unspecified, unspecified site; I48.20 Chronic atrial fibrillation, unspecified; C22.8 Malignant neoplasm of liver, primary, unspecified as to type; J44.9 Chronic obstructive pulmonary disease, unspecified; F41.1 Generalized anxiety disorder; D69.6 Thrombocytopenia, unspecified; D72.829 Elevated white blood cell count, unspecified; I12.9 Hypertensive chronic kidney disease with stage 1 through stage 4 chronic kidney disease, or unspecified chronic kidney disease; M31.6 Other giant cell arteritis; K21.9 Gastro-esophageal reflux disease without esophagitis; D63.1 Anemia in chronic kidney disease; R16.0 Hepatomegaly, not elsewhere classified; N18.30 Chronic kidney disease, stage 3 unspecified; Z20.822 Contact with and (suspected) exposure to COVID-19; Z96.641 Presence of right artificial hip joint; Z79.52 Long term (current) use of systemic steroids; Z79.2 Long term (current) use of antibiotics; Z88.4 Allergy status to anesthetic agent; Z79.01 Long term (current) use of anticoagulants; Z79.899 Other long term (current) drug therapy; Z98.890 Other specified postprocedural states; Z92.21 Personal history of antineoplastic chemotherapy; Z79.82 Long term (current) use of aspirin
CPT/HCPCS: 0241U; 36415; 36556; 36600; 47000; 71045; 71260; 74177; 77012; 80048; 80053; 80069; 82803; 83605; 84145; 84484; 85025; 85610; 85730; 87040; 87070; 87077; 87081; 87147; 87184; 87186; 87205; 88307; 88341; 88342; 93005; 93010; 93308; 93321; 94640; 94760; 94762; 96365; 96367; 96375; 97110; 97162; 97166; 97530; 97535; 99285-25; A9270; C1751; J0360; J0692; J1720; J2543; J3370; J7030; J7050; J7060; J7120; J7512; Q9967

== ENCOUNTER 2022-03-17 01:00 | Day surgery (SDC) | payer MEDICARE, BC ==
[~2022-03-17 01:00] MED LIST changes: +AMOCLA875 PO; +DOCU100 PO; +DORZOPSO RIGHTEYE; +LATA.005SO RIGHTEYE; +MULVITA PO; +VISBIOME 112.51 EACH PO; +VITAMIN B122500 MC1 PO; +Vitamin D1000 UNI1 PO
== END 2022-03-17 23:00 | disposition home or self-care (01) ==
LOC: WOUND 01:00
DX: L97.825 Non-pressure chronic ulcer of other part of left lower leg with muscle involvement without evidence of necrosis (principal); L08.9 Local infection of the skin and subcutaneous tissue, unspecified; I87.2 Venous insufficiency (chronic) (peripheral)
CPT/HCPCS: A9270

== ENCOUNTER 2022-03-24 01:12 | Day surgery (SDC) | payer MEDICARE, BC | END 2022-03-24 22:46 | disposition home or self-care (01) | LOC: WOUND 01:12 | DX: L97.825 Non-pressure chronic ulcer of other part of left lower leg with muscle involvement without evidence of necrosis (principal); L08.9 Local infection of the skin and subcutaneous tissue, unspecified; I87.2 Venous insufficiency (chronic) (peripheral); Z87.891 Personal history of nicotine dependence; C43.4 Malignant melanoma of scalp and neck | CPT/HCPCS: A9270 ==

== ENCOUNTER 2022-03-31 00:24 | Day surgery (SDC) | payer MEDICARE, BC | END 2022-03-31 22:51 | disposition home or self-care (01) | LOC: WOUND 00:24 | DX: S81.812A Laceration without foreign body, left lower leg, initial encounter (principal); L08.9 Local infection of the skin and subcutaneous tissue, unspecified; W22.8XXA Striking against or struck by other objects, initial encounter | CPT/HCPCS: A9270 ==

== ENCOUNTER 2022-04-07 01:52 | Day surgery (SDC) | payer MEDICARE, BC | END 2022-04-07 23:01 | disposition home or self-care (01) | LOC: WOUND 01:52 | DX: S91.012A Laceration without foreign body, left ankle, initial encounter (principal); W22.8XXA Striking against or struck by other objects, initial encounter; L97.822 Non-pressure chronic ulcer of other part of left lower leg with fat layer exposed; L08.9 Local infection of the skin and subcutaneous tissue, unspecified; I87.2 Venous insufficiency (chronic) (peripheral) ==

== ENCOUNTER 2022-04-14 01:10 | Day surgery (SDC) | payer MEDICARE, BC | END 2022-04-14 23:23 | disposition home or self-care (01) | LOC: WOUND 01:10 | DX: S81.812A Laceration without foreign body, left lower leg, initial encounter (principal); I87.2 Venous insufficiency (chronic) (peripheral); L97.822 Non-pressure chronic ulcer of other part of left lower leg with fat layer exposed; L08.9 Local infection of the skin and subcutaneous tissue, unspecified; C22.8 Malignant neoplasm of liver, primary, unspecified as to type; C43.4 Malignant melanoma of scalp and neck; C85.99 Non-Hodgkin lymphoma, unspecified, extranodal and solid organ sites; X58.XXXA Exposure to other specified factors, initial encounter | CPT/HCPCS: A9270 ==

== ENCOUNTER 2022-04-21 05:20 | Day surgery (SDC) | payer MEDICARE, BC | END 2022-04-21 22:50 | disposition home or self-care (01) | LOC: WOUND 05:20 | DX: L97.822 Non-pressure chronic ulcer of other part of left lower leg with fat layer exposed (principal); L08.9 Local infection of the skin and subcutaneous tissue, unspecified; I87.2 Venous insufficiency (chronic) (peripheral) | CPT/HCPCS: A9270 ==

== ENCOUNTER 2022-04-28 03:32 | Day surgery (SDC) | payer MEDICARE, BC | END 2022-04-28 23:17 | disposition home or self-care (01) | LOC: WOUND 03:32 | DX: L97.822 Non-pressure chronic ulcer of other part of left lower leg with fat layer exposed (principal); L08.9 Local infection of the skin and subcutaneous tissue, unspecified; I87.2 Venous insufficiency (chronic) (peripheral) ==

== ENCOUNTER 2022-05-15 08:00 | Day surgery (SDC) | payer MEDICARE, BC ==
[~2022-05-15 08:00] MED LIST changes: +AMOCLA500 PO; +CLONIDINE1 EA17 TD; -FLUT1DIS2 INH; +FLUT1DIS5 INH; +RAYOS5 M1 PO; +XARELTO15 MG PO; -XARELTO20 M1 PO
== END 2022-05-15 23:59 | disposition home or self-care (01) ==
LOC: WOUND 08:00
DX: L97.822 Non-pressure chronic ulcer of other part of left lower leg with fat layer exposed (principal); L08.9 Local infection of the skin and subcutaneous tissue, unspecified; I87.2 Venous insufficiency (chronic) (peripheral)
CPT/HCPCS: G0463

== ENCOUNTER 2022-05-22 02:38 | Day surgery (SDC) | payer MEDICARE, BC | END 2022-05-22 23:28 | disposition home or self-care (01) | LOC: WOUND 02:38 | DX: L97.822 Non-pressure chronic ulcer of other part of left lower leg with fat layer exposed (principal); L08.9 Local infection of the skin and subcutaneous tissue, unspecified; I87.2 Venous insufficiency (chronic) (peripheral) | CPT/HCPCS: G0463 ==

== ENCOUNTER → 2022-07-15 | Outpatient (CLI) | payer MEDICARE, BC | END | disposition home or self-care (01) | LOC: LAB 12:41 | DX: H10.9 Unspecified conjunctivitis (principal) ==